=== PATIENT | male | born 1930 | race Caucasian/White ===

== ENCOUNTER 2017-01-05 22:30 | Emergency (ER) | payer MEDICARE, BC ==
[2017-01-05 23:21] LABS: #Eosinphils 0.2 thou/uL (0.0-0.7); #Lymphocytes 1.5 thou/uL (1.20-3.40); #Monocytes 0.8 thou/uL (0.11-0.59); #Neutrophils 5.5 thou/uL (1.40-6.50); %Basophils 0.5 % (0.0-1.0); %Lymphocytes 18.3 % (21.0-51.0); %Monocytes 9.4 % (0.0-10.0); Hematocrit 34.8 % (42.0-52.0); Red Blood Cell (RBC) Count 3.65 mill/uL (4.70-6.10); White Blood Cell (WBC) Count 7.9 thou/uL (4.8-10.8)
[2017-01-05] MEDS ORDERED: Bisacodyl 10 MG SUPP ONE (23:25)
[2017-01-05] MEDS ORDERED: Lidocaine Viscous Sol 2% 15 ml UD Cup ONE (23:26)
[2017-01-05 23:41] LABS: ALT (SGPT) 16 U/L (8-55); AST (SGOT) 21 U/L (5-34); Alkaline Phosphatase 97 U/L (40-150); Anion Gap 15 mmol/L (10-20); BUN (Urea Nitrogen) 26 mg/dL (8.4-25.7); Bilirubin, Total 0.4 mg/dL (0.2-1.2); Calc. Creatinine Clearance 0 mL/min (70-130); Calcium 9.6 mg/dL (7.8-10.44); Carbon Dioxide 24 mmol/L (23-31); Chloride 101 mmol/L (98-107); Estimated GFR-MDRD 44; Globulin 3.1 g/dL (2.4-3.5); Protein, Total 6.7 g/dL (5.8-8.1)
--- NOTE | 2017-01-05 23:43 | RAD ---
ABDOMEN ONE VIEW: History: Constipation. FINDINGS/IMPRESSION: Comparison is made with exam of 08-15-14. Changes of cholecystectomy and lower spinal surgery again seen. There are degenerative changes in th e spine. The bowel gas pattern is unremarkable. There is fecal material in the colon. POS: [facility]
[2017-01-05] MEDS ORDERED: Fleet Enema 133 ML BOT FS SCH (23:45)
[2017-01-05] MEDS ORDERED: Magnesium Citrate 300 ML BOT ONE (23:47)
== END 2017-01-06 02:00 | disposition home or self-care (01) ==
LOC: ERS 22:30
DX: K59.00 Constipation, unspecified (principal); E11.9 Type 2 diabetes mellitus without complications
CPT/HCPCS: 36415; 74000; 80053; 85025

== ENCOUNTER 2017-02-23 00:18 | Emergency (ER) | payer MEDICARE, BC | END 2017-02-23 02:01 | disposition home or self-care (01) | LOC: ERS 00:18 | DX: S80.211A Abrasion, right knee, initial encounter (principal); S80.811A Abrasion, right lower leg, initial encounter; E11.9 Type 2 diabetes mellitus without complications; M54.9 Dorsalgia, unspecified; F17.210 Nicotine dependence, cigarettes, uncomplicated; W18.11XA Fall from or off toilet without subsequent striking against object, initial encounter; Y92.012 Bathroom of single-family (private) house as the place of occurrence of the external cause | CPT/HCPCS: 36416; 93005; 99406 ==

== ENCOUNTER 2017-02-28 14:23 | Inpatient (IN) | payer MEDICARE, BC ==
[2017-02-28 14:58] LABS: #Lymphocytes 1.2 thou/uL (1.20-3.40); #Monocytes 1.1 thou/uL (0.11-0.59); %Basophils 0.1 % (0.0-1.0); %Lymphocytes 7.6 % (21.0-51.0); %Monocytes 6.5 % (0.0-10.0); Hematocrit 35.9 % (42.0-52.0); Mean Platelet Volume 9.5 fL (7.4-10.4); Red Blood Cell (RBC) Count 3.64 mill/uL (4.70-6.10); White Blood Cell (WBC) Count 16.4 thou/uL (4.8-10.8)
[2017-02-28 15:15] LABS: ALT (SGPT) 23 U/L (8-55); AST (SGOT) 30 U/L (5-34); Alkaline Phosphatase 101 U/L (40-150); Anion Gap 15 mmol/L (10-20); BUN (Urea Nitrogen) 23 mg/dL (8.4-25.7); Bilirubin, Total 0.7 mg/dL (0.2-1.2); CK (CPK) 161 U/L (30-200); Calc. Creatinine Clearance 0 mL/min (70-130); Carbon Dioxide 21 mmol/L (23-31); Chloride 102 mmol/L (98-107); Estimated GFR-MDRD 42; Globulin 2.8 g/dL (2.4-3.5); Protein, Total 6.4 g/dL (5.8-8.1)
[2017-02-28 15:23] LABS: Troponin I 1.819 ng/mL (< 0.028)
--- NOTE | 2017-02-28 15:49 | RAD ---
FRONTAL VIEW CHEST: Date: 02/28/17 INDICATION: Fever, productive cough, and weakness. FINDINGS: Improved degree of right pleural fluid from prior exam. There is mild bilateral pleural fluid remaini ng. Patchy multifocal parenchymal density of the right perihilar region and right lung base present. Cardiac silhouette is prominent. Removal of prior left PICC line. IMPRESSION: 1. Improved volume of right pleural fluid with residual mild right pleural fluid. Small volume left pleural fluid also present. 2. Multifocal parenchymal density of the mid to inferior right hemithorax which may be on the basis of atypical pneumonia. Follow-up to resolution recommended. POS: [facility]
[2017-02-28] MEDS ORDERED: Heparin 10,000 UNITS/ 10 ML VIAL SLOW IVP SCH (16:30)
[2017-02-28 16:34] LABS: Lactic Acid - Sepsis 1.7 mmol/L (0.5-2.2)
[2017-02-28 16:37] LABS: PTT 37.9 SEC (22.9-36.1); Prothrombin Time 15.7 SEC (12.0-14.7)
[2017-02-28] MEDS ORDERED: Heparin 5,000 UNITS/ML VIAL ONE (16:42)
[2017-02-28] MEDS ORDERED: Doxycycline 100 MG CAP PO SCH (16:45)
--- NOTE | 2017-02-28 17:08 | CON ---
DATE OF SERVICE: 02/28/2017 PRIMARY PAVING AND SURFACING LABOURER: Rasta Bronson M.D. REASON FOR CONSULTATION: Elevated troponins. HISTORY OF PRESENT ILLNESS: Mr. Olivera is a very pleasant 86-year-old white gentleman who comes to the hospital for cough. He states for the last 4 days he has been noticing a cough productive of gra y sputum. He felt he was developing pneumonia. He started to get short of breath as well, so he dec ided to come in for evaluation. He denies any chest pain, tightness or pressure. He states he has a little chest discomfort when he coughs, but otherwise nothing else. He was seen in the ER and was f ound to have an elevated white count and a right lower lobe pneumonia and on blood work he was found to have elevated troponins, so Cardiology has been consulted for this. He is a patient of Dr. Fariha guardado, sees him for atrial fibrillation. He was in the hospital back in July or June of this year for very high fevers, he had a temperature about 105. He was found to have an abscess on his liver and h e developed atrial fibrillation during this time. He has had a stress test back [place] [address] Pearl velazquez which showed inferior scar, but no reversible ischemia. His EF at that time was normal at 63% . PAST MEDICAL HISTORY: 1. Type 2 diabetes. 2. BPH. 3. Lymphoma about 10 years ago, treated with chemoradiation, in remission. 4. Memory loss. 5. Chronic back pain. 6. Peripheral vascular disease. PAST SURGICAL HISTORY: 1. Appendectomy. 2. Cholecystectomy. 3. Multiple back surgeries with chronic back pain. 4. Carotid endarterectomy. MEDICATIONS: Include, 1. Tylenol p.r.n. 2. Amiodarone 200 mg a day. 3. Aspirin 325 mg a day. 4. Diltiazem 240 mg a day. 5. Finasteride. 6. Metformin. 7. Omeprazole. 8. Terazosin. 9. Tylenol with codeine. ALLERGIES: PENICILLIN. FAMILY HISTORY: Noncontributory at this age. SOCIAL HISTORY: No alcohol, tobacco or drugs. REVIEW OF SYSTEMS: A 12-point review of systems was done and is all negative unless stated in the hi story of present illness. PHYSICAL EXAMINATION: VITAL SIGNS: Temperature 100.5, pulse 72, respiration rate 22, satting 88% on room air. GENERAL: Awake, alert, oriented x3, in no distress. HEENT: Normocephalic, atraumatic. NECK: Supple. LUNGS: Have crackles at the right base. CARDIOVASCULAR: S1, S2, no S3 or S4. A very soft grade 2/6 systolic murmur in the right upper youngblood al border. ABDOMEN: Soft, positive bowel sounds. EXTREMITIES: No edema. SKIN: Warm and dry. LABORATORY WORK: Reviewed. CBC with a white count of 16, mostly neutrophils 85%, hemoglobin 11.8, h ematocrit 35, platelet count 138. Coags were reviewed. Chemistry was reviewed. Creatinine 1.56, wh ich is higher than his baseline, but similar to what it was back in December in September. Troponin was 1. 8 initially, CK-MB of 4.3, albumin of 3.6. Lactic acid was 1.7. EKG showed sinus rhythm with nonspecific ST changes. Chest x-ray shows right lower lobe pneumonia. ASSESSMENT AND PLAN: 1. Non-ST elevation myocardial infarction: Demand ischemia, most likely from his infectious process . We will get an echocardiogram and agree with full anticoagulation for now until further informatio n comes in. 2. We will get an echocardiogram. 3. Continue to trend troponins. 4. Antibiotics per primary team. Thank you for letting us to participate in the care of your patient. We will follow.
[2017-02-28] MEDS ORDERED: Heparin 25,000 units/D5W 500 ML ONE (17:23)
[2017-02-28] MEDS: Heparin 25,000 units/D5W 500 ML IV SCH (17:31)
[2017-02-28] MEDS ORDERED: Mag-Al 1200 mg/1200 mg/30 ML UDCUP PO PRN (17:51)
[2017-02-28] MEDS ORDERED: Ondansetron HCl/PF 4 MG/2 ML Vial IVP PRN (17:51)
[2017-02-28] MEDS ORDERED: Calcium Carbonate 500 MG ChewTAB PO PRN (17:51)
[2017-02-28] MEDS ORDERED: Bisacodyl 5 MG TAB PO PRN (17:51)
[2017-02-28] MEDS ORDERED: Senokot 8.6 MG TAB PO PRN (17:51)
[2017-02-28] MEDS ORDERED: Albuterol Sulfate 1.25 MG/3 ML NEB NEB PRN (17:53)
[2017-02-28 18:22] LABS: Troponin I 3.476 ng/mL (< 0.028)
[2017-02-28] MEDS: Azithromycin 500 MG in Sodium Chloride 0.9% 250 ML 250 ML IVPB SCH (19:42)
--- NOTE | 2017-02-28 20:18 | HP ---
CHIEF COMPLAINT: Shortness of breath. HISTORY OF PRESENT ILLNESS: This is an 86-year-old gentleman with past medical history significant f or type 2 diabetes as well as peripheral vascular disease, and BPH, who presents to the hospital julieth use of shortness of breath that occurred over the past few days that has been associated with cough. The patient states that his cough has started approximately 4 days ago and has been progressively ge tting worse and has gotten progressively worse and this has been associated with some shortness of br eath. He states that the cough has been magana colored sputum in nature. Because of the cough was not getting any better, he decided to come to the hospital for further evaluation and management. He st ates that along with these, he has not been having any chest pain, chills or sweats. Also, he is not recording any fevers at home. While the patient was in the ER, he was found to have a temperature o f 100.1 with a troponin of 1.819. Cardiology was consulted at that time. He currently states that mookie arauz is doing well. He denies any current complaints now including shortness of breath as well as chest pain. He does state that he does feel a little better, but is still complaining of cough at this ti me. Because of the findings that were found with labs, Cardiology was consulted. He currently denie s any other complaints at this time. He states that currently he is just very hungry. PAST MEDICAL HISTORY: See HPI. PAST SURGICAL HISTORY: Includes appendectomy as well as cholecystectomy, multiple back surgeries as well as carotid endarterectomy. FAMILY HISTORY: Significant for cardiovascular disease as well as diabetes. HOME MEDICATIONS: Include Tylenol, amiodarone, aspirin, diltiazem, finasteride, metformin, terazosin , omeprazole as well as Tylenol with codeine. SOCIAL HISTORY: The patient denies any tobacco, recreational drug use or alcoholic use. REVIEW OF SYSTEMS: A 14-point review of systems was reviewed and was negative. PHYSICAL EXAMINATION: VITAL SIGNS: Blood pressure was 129/50, pulse was 81, temperature was as stated 100.1, no it is curr ently 98.4. Patient was satting 95% oxygen on 2 liters nasal cannula. He was 91% on room air. GENERAL: Patient was in no apparent distress, resting comfortably in the bed. Alert, awake, oriente d x3. HEENT: Head: Normocephalic, atraumatic. Eyes: Pupils round and reactive to light. Extraocular mu scles were intact. Conjunctivae were pink. Sclerae were nonicteric. Mouth: Oral mucosa is pink an d moist. No erythema was noted. NECK: Soft, supple, no JVD, no carotid bruits, no lymphadenopathy. CARDIOVASCULAR: Regular rate and rhythm. S1, S2 sounds are heard. No S3, no S4. RESPIRATORY: Clear to auscultation bilaterally. No added sounds. ABDOMEN: Bowel sounds, soft, nontender, nondistended. EXTREMITIES: Pulses were 2+ both dorsalis and radial pulse. No pitting edema could be appreciated. NEUROLOGIC: Cranial nerves II through XII are grossly intact. The patient is moving all 4 extremiti es very well. Motor was intact. No focal deficits could be appreciated. LABORATORY DATABASE: White blood cell count 16.4, hemoglobin 11.9, hematocrit 35.9, platelet count w as 138. Sodium was 133, potassium 4.6, chloride is 102, bicarbonate was 21, creatinine was 1.56, glu cose is 121, lactic acid was 1.7. As stated, troponin was 1.8. BNP was 606. IMAGING: Chest x-ray showed multifocal parenchymal density of the mid to inferior right hemothorax w hich may be on the basis of atypical pneumonia. EKG did not show any acute abnormalities including ST elevation. ASSESSMENT: 1. Non-ST elevated myocardial infarction, likely demand ischemia in nature with infectious process c urrently, most likely pneumonia at this time: 2. Sepsis, likely secondary to community-acquired pneumonia. 3. Type 2 diabetes. 4. Benign prostatic hypertrophy. 5. Acute kidney injury, likely prerenal in nature with acute dehydration component as the patient do es look slightly dehydrated at this time. 6. Peripheral vascular disease. PLAN: Currently the patient is hemodynamically stable at this time and without any significant sympt oms. Patient was placed on heparin drip. Cardiology has been consulted. We will trend the troponin s with 2 more sets of troponins and monitor accordingly. We will place the patient on telemetry. We will also place the patient on antibiotics with IV Rocephin as well as azithromycin for most likely community-acquired pneumonia. Blood cultures have already been drawn, so we will follow with these r ecommendations accordingly. We will resume home medications, put him on sliding scale insulin protoc ol and we will resume home medication at the medicine reconciliation as well. DVT prophylaxis, the p atient will be on heparin drip due to the NSTEMI. The patient does not need any other anticoagulatio n at this time. We will also monitor creatinine in a.m. due to the slight bump in his creatinine and address accordingly.
[2017-02-28 21:20] LABS: Troponin I 3.854 ng/mL (< 0.028)
[2017-02-28] MEDS ORDERED: Melatonin 3 MG TAB PO PRN (23:08)
[2017-02-28] MEDS ORDERED: Diabetic Tussin 200 MG/10 ML UDCUP PO PRN (23:08)
[2017-02-28 23:11] VITALS: BMI 29.7
[2017-03-01 00:11] LABS: PTT 193.4 SEC (22.9-36.1)
[2017-03-01 03:25] LABS: #Eosinphils 0.1 thou/uL (0.0-0.7); #Lymphocytes 2.7 thou/uL (1.20-3.40); #Monocytes 0.7 thou/uL (0.11-0.59); #Neutrophils 8.9 thou/uL (1.40-6.50); %Basophils 0.2 % (0.0-1.0); %Eosinophils 0.4 % (0.0-10.0); %Lymphocytes 21.7 % (21.0-51.0); %Monocytes 5.4 % (0.0-10.0); Mean Platelet Volume 9.3 fL (7.4-10.4); Red Blood Cell (RBC) Count 2.99 mill/uL (4.70-6.10); White Blood Cell (WBC) Count 12.3 thou/uL (4.8-10.8)
[2017-03-01 03:30] LABS: Anion Gap 10 mmol/L (10-20); BUN (Urea Nitrogen) 21 mg/dL (8.4-25.7); Calc. Creatinine Clearance 46 mL/min (70-130); Calcium 8.2 mg/dL (7.8-10.44); Carbon Dioxide 23 mmol/L (23-31); Chloride 102 mmol/L (98-107); Estimated GFR-MDRD 52
[2017-03-01] MEDS ORDERED: MELATONIN 2.5 MG PO PRN ×2 (11:02→11:15)
[2017-03-01] MEDS ORDERED: Non-Formulary Item 1 EACH (Omeprazole [Omeprazole] 20 MG) PO PRN (11:02)
[2017-03-01] MEDS ORDERED: Non-Formulary Item 1 EACH (Mirabegron [Myrbetriq] 50 MG) PO SCH (11:03)
[2017-03-01] MEDS ORDERED: Amiodarone 200 MG TAB PO SCH ×2 (11:05→11:15)
--- NOTE | 2017-03-01 11:08 | PDOC.PN ---
- Subjective Encounter Start Date: 03/01/17 Encounter Start Time: 10:30 states cough is getting better denies sob or chest pain c/o of dry eyes - Objective Resuscitation Status: Resuscitation Status FULL:Full Resuscitation Vital Signs & Weight: Vital Signs (12 hours) Temp Pulse Resp BP Pulse Ox 03/01/17 10:18 73 16 131/57 L 95 03/01/17 08:00 98.7 F 74 22 H 121/47 L 97 03/01/17 04:00 98.3 F 71 18 127/62 96 03/01/17 00:16 97.9 F 76 18 132/52 L 97 Weight Weight 184 lb 1.6 oz I&O: 02/28/17 03/01/17 03/02/17 06:59 06:59 06:59 Intake Total 767 240 Output Total 100 Balance 667 240 Result Diagrams: 03/01/17 02:45 03/01/17 02:45 Additional Labs: Accuchecks 03/01/17 02/28/17 05:43 20:49 POC Glucose 122 H 178 H Phys Exam - Physical Examination Constitutional: NAD HEENT: PERRLA, moist MMs, sclera anicteric Neck: no nodes, no JVD, supple Respiratory: no wheezing, clear to auscultation bilateral Cardiovascular: RRR, no rub systolic murmurs over aortic Gastrointestinal: soft, non-tender, no distention, positive bowel sounds Musculoskeletal: pulses present Neurological: non-focal, moves all 4 limbs Psychiatric: normal affect, A&O x 3 Skin: normal turgor, cap refill <2 seconds Dx/Plan (1) Pneumonia Code(s): J18.9 - PNEUMONIA, UNSPECIFIED ORGANISM Status: Acute (2) NSTEMI (non-ST elevated myocardial infarction) Code(s): I21.4 - NON-ST ELEVATION (NSTEMI) MYOCARDIAL INFARCTION Status: Acute (3) Sepsis Code(s): A41.9 - SEPSIS, UNSPECIFIED ORGANISM Status: Acute (4) MARTHA (acute kidney injury) Code(s): N17.9 - ACUTE KIDNEY FAILURE, UNSPECIFIED Status: Acute - Plan cont current plan of care, plan discussed w/ family, continue antibiotics * . on heparin gtt troponins trended upwards. unclear or primarily cardiac vs demand ischemia follow recs from cardiology resume home meds lubricant drops prn
--- NOTE | 2017-03-01 12:45 | PDOC.CTH ---
Cardiology Progress Note - Subjective he continues to have cough but feels better with the abx. He has pain on his bottom rib cage with cough only. - Objective Vital Signs Temp Pulse Resp BP BP Pulse Ox 03/01/17 11:31 98.3 F 75 20 96 03/01/17 11:22 76 135/64 03/01/17 10:18 73 16 131/57 L 95 03/01/17 08:00 98.7 F 74 22 H 121/47 L 97 03/01/17 04:00 98.3 F 71 18 127/62 96 Weight 184 lb 1.6 oz 02/28/17 03/01/17 03/02/17 06:59 06:59 06:59 Intake Total 767 240 Output Total 100 Balance 667 240 - Physical Examination General/Neuro: alert & oriented x3, NAD Neck: no JVD present Lungs: unlabored respirations Heart: RRR Abdomen: NT/ND Extremities: other: (no edema) - Telemetry Telemetry Rhythm: NSR - Labs Result Diagrams: 03/01/17 02:45 03/01/17 02:45 Troponin/CKMB CK-MB (CK-2) 4.3 ng/mL (0-6.6) 02/28/17 14:38 Troponin I 3.854 ng/mL (< 0.028) H* 02/28/17 20:42 - Assessment/Plan 1. NSTEMI, demand ischemia most likely 2. RLL pneumonia 3. 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 4. Acute systolic heart failure. 5. EFat 45-50% on echo today. PLAN: - One dose IV lasix then only PRN. - Continue IV abx per primary team. - May need further risk stratification later this admission or as outpatient. - Complete 48 hrs of heparin drip.
[2017-03-01] MEDS ORDERED: Furosemide 40 MG/4 ML VIAL SLOW IVP SCH (15:00)
[2017-03-01] MEDS: Artificial Tear Sol 15 ML BOT EA EYE PRN (15:11)
[2017-03-01] MEDS: Azithromycin 500 MG in Sodium Chloride 0.9% 250 ML 250 ML IVPB SCH (18:06)
[2017-03-01] MEDS: Finasteride 5 MG TAB PO SCH (20:58)
[2017-03-01] MEDS: Donepezil HCl 10 MG TAB PO SCH (20:59)
[2017-03-01] MEDS ORDERED: Non-Formulary Item 1 EACH (Terazosin Hcl [Hytrin] 10 MG) PO SCH (21:00)
[2017-03-01] MEDS: Terazosin HCl 5 MG CAP PO SCH (21:00)
[2017-03-01] MEDS: TROSPIUM 20 MG TABLET PO SCH (21:01)
--- NOTE | 2017-03-01 21:51 | CON ---
DATE OF CONSULTATION: 03/01/2017 SERVICE: Pulmonary Medicine. REASON FOR CONSULTATION: Respiratory failure, community-acquired pneumonia. HISTORY OF PRESENT ILLNESS: Patient is an 86-year-old white male with past medical history significant for increasing weakness. He also has type 2 diabetes mellitus and back pain. He spends most of his time in a wheelchair. He is having increasing difficulty with his strength. In this state, roughly 3 days prior to admission, he started having increasing cough, congestion, and sputum production. He had so much weakness that he had difficulty getting out of bed and fell on to the ground. His called the children. They came and picked him up and brought him to the emergency department. He had a fever, elevated troponin, and had pretty severe weakness. He was tucked into the [facility] , initiated on appropriate antibiotic coverage for community-acquired pneumonia. Overnight, he got significantly better. He is having less cough, but bringing up twice his much sputum which has a green character to it. He is feeling much improved and the strength is starting to come around. PAST MEDICAL HISTORY: 1. Type 2 diabetes mellitus. 2. Peripheral vascular disease. 3. BPH. 4. Chronic back discomfort. 5. Coronary artery disease. PAST SURGICAL HISTORY: 1. Cholecystectomy. 2. Appendectomy. 3. Back surgeries, multiple. 4. Carotid endarterectomy. FAMILY HISTORY: Noncontributory. SOCIAL HISTORY: Negative for current alcohol, tobacco, or illicit drug use. He denies any exposure to chemicals, dust, asbestos, or tuberculosis. ALLERGIES: PENICILLIN. MEDICATIONS: List of his inpatient medications was reviewed. No updates were made at this time. REVIEW OF SYSTEMS: General, head, ears, eyes, nose, throat, cardiovascular, respiratory, GI, , musculoskeletal, neurologic, and skin is negative except as mentioned in the HPI. PHYSICAL EXAMINATION: VITAL SIGNS: Afebrile, pulse 66, blood pressure 130/51, respirations 20, saturation 95% on room air. HEENT: Normocephalic, atraumatic. Sclerae are white, conjunctivae pink. Oral and nasal mucosa is moist without lesions. LUNGS: Decent air entry. Rhonchi are present on the right. It clears with cough. No prolonged expiratory phase or wheezing is appreciated. HEART: Normal rate, regular. ABDOMEN: Soft, nontender, nondistended, bowel sounds positive. MUSCULOSKELETAL: No cyanosis or clubbing. There is no pitting in the bilateral lower extremities. NEUROLOGIC: Grossly nonfocal. LABORATORY DATA: WBC 12.3, hemoglobin 9.4. Platelets 112,000. INR 1.2. Creatinine is down trending to 1.31. Basic metabolic profile is otherwise unremarkable. Troponin is stabilizing at 3.8. Influenza A and B is unremarkable. Blood cultures x2 are unremarkable. ASSESSMENT: 1. Severe sepsis. 2. Community-acquired pneumonia. 3. 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 4. Acute kidney injury, resolving. 5. Non-ST elevation myocardial infarction. PLAN: We will continue antibiotics. Tomorrow, if he continues to make improvements, we can switch over to p.o. medications. If his blood cultures remain negative after 48 hours, he can be discharged to a nursing home facility. His daughter runs the place that he would like to go. Case management consultation will be placed. Supportive care including nebulized medications will otherwise be continued. TEODORA
[2017-03-02] MEDS: Heparin 25,000 units/D5W 500 ML IV SCH (05:39)
--- NOTE | 2017-03-02 09:42 | PDOC.PN ---
- Subjective Encounter Start Date: 03/02/17 Encounter Start Time: 09:32 Subjective: no fever, chills. sill has cough - Objective Resuscitation Status: Resuscitation Status FULL:Full Resuscitation MAR Reviewed: Yes Vital Signs & Weight: Vital Signs (12 hours) Temp Pulse Resp BP Pulse Ox 03/02/17 07:27 98.4 F 72 20 96 03/02/17 07:15 98.4 F 72 20 140/54 L 96 03/02/17 04:00 98.6 F 71 20 142/55 H 93 L 03/02/17 00:00 97.7 F 65 16 132/54 L 95 Weight Weight 182 lb 6.4 oz I&O: 03/01/17 03/02/17 03/03/17 06:59 06:59 06:59 Intake Total 767 1737 Output Total 100 1425 Balance 667 312 Result Diagrams: 03/01/17 02:45 03/01/17 02:45 Phys Exam - Physical Examination Constitutional: NAD Neck: no JVD Respiratory: clear to auscultation bilateral except a few scatterd, faint ralesw Cardiovascular: RRR 3/6 holosys murmur Gastrointestinal: soft, non-tender, positive bowel sounds Musculoskeletal: no edema Dx/Plan (1) MARTHA (acute kidney injury) Code(s): N17.9 - ACUTE KIDNEY FAILURE, UNSPECIFIED Status: Acute (2) Pneumonia Code(s): J18.9 - PNEUMONIA, UNSPECIFIED ORGANISM Status: Acute Qualifiers: Pneumonia type: due to unspecified organism Laterality: bilateral (3) Atrial fibrillation with RVR Code(s): I48.91 - UNSPECIFIED ATRIAL FIBRILLATION Status: Chronic Comment: on Amiodarone/Cardizem (4) Anemia, macrocytic Code(s): D53.9 - NUTRITIONAL ANEMIA, UNSPECIFIED Status: Chronic (5) BPH (benign prostatic hyperplasia) Code(s): N40.0 - BENIGN PROSTATIC HYPERPLASIA WITHOUT LOWER URINRY TRACT SYMP Status: Chronic Qualifiers: Lower urinary tract symptom presence: symptoms absent Qualified Code(s): N40.0 - Benign prostatic hyperplasia without lower urinary tract symptoms (6) Diabetes type 2, controlled Code(s): E11.9 - TYPE 2 DIABETES MELLITUS WITHOUT COMPLICATIONS Status: Chronic - Plan cultures neg, cont antibx iv 24 more hrs -: cont accu/ ss, sellected home meds * .
[2017-03-02] MEDS: TROSPIUM 20 MG TABLET PO SCH ×2 (09:45→20:38)
[2017-03-02] MEDS: Amiodarone 200 MG TAB PO SCH (09:45)
--- NOTE | 2017-03-02 13:15 | PRG ---
DATE OF SERVICE: 03/02/2017 Mr. Olivera is doing well. No chest pain or pressure noted. He recently was admitted for pneumonia. His troponin was also elevated. PHYSICAL EXAMINATION: VITAL SIGNS: Blood pressure 145/65, pulse 72, temperature 97.5. LUNGS: Clear to auscultation. CARDIAC: Regular rate and rhythm. ABDOMEN: Soft, nontender, nondistended. EXTREMITIES: No edema. Echo with Doppler shows LVEF 45-50%. IMPRESSION: 1. elevated troponin, likely due to demand ischemia. 2. Pneumonia. RECOMMENDATIONS: Mr. Olivera has had a stress study performed in 2014 with scar in the inferior wal l. He is hemodynamically stable with no current symptoms. At this point, we will continue conservat henok therapy. He is currently on amiodarone therapy, aspirin, in addition to Cardizem. Continue anti biotic therapy as prescribed.
[2017-03-02] MEDS: Azithromycin 500 MG in Sodium Chloride 0.9% 250 ML 250 ML IVPB SCH (17:58)
[2017-03-02] MEDS: Donepezil HCl 10 MG TAB PO SCH (20:38)
[2017-03-02] MEDS: Finasteride 5 MG TAB PO SCH (20:38)
[2017-03-02] MEDS: Terazosin HCl 5 MG CAP PO SCH (20:38)
--- NOTE | 2017-03-02 22:13 | PRG ---
DATE OF SERVICE: 03/02/2017 SERVICE: Pulmonary Medicine. INTERVAL HISTORY: The patient is doing really well from a respiratory standpoint. His breathing is much improved. He continues to cough. He is bringing up a little bit of green sputum. That being sa id, he feels much improved. His strength is coming back to him. He is yet to get out of bed, kim cortez PHYSICAL EXAMINATION: VITAL SIGNS: Afebrile currently. Pulse 73, blood pressure 145/65, respirations 16, saturation 96% o n room air. GENERAL: The patient is awake and alert, in no apparent distress. LUNGS: Decent air entry. Rhonchi are present on the right. HEART: Normal rate, regular. ABDOMEN: Soft, nontender, nondistended, bowel sounds are positive. MUSCULOSKELETAL: No cyanosis or clubbing. No pitting in the bilateral lower extremities. NEUROLOGIC: Grossly nonfocal. LABORATORY DATA: WBC 12.3 and down trending, hemoglobin 9.4, platelets 112,000. Neutrophil count hdez s returned to normal. Creatinine 1.31 and also down trending. Influenza A and B is negative. Blood cultures negative to date. ASSESSMENT: 1. Severe sepsis, improving. 2. Community-acquired pneumonia. 3. 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 4. Acute kidney injury, resolved. 5. Non-ST elevation myocardial infarction. PLAN: The patient is stable for transition out of the [facility] to the regular floor Pulmonary Critical Care will continue to follow up for the time being. Ultimately on discharge from the hospital, he wi ll require repeat chest x-ray to verify his infiltrate has resolved. We will work on mobilizing him today and get him out of bed and into a chair as well as have him work with physical therapy. Repeat laboratories in the morning.
[2017-03-03] MEDS: Artificial Tear Sol 15 ML BOT EA EYE PRN (00:27)
[2017-03-03] MEDS: Acetaminophen 325 MG TAB PO PRN ×2 (00:27→10:26)
[2017-03-03 04:49] LABS: #Eosinphils 0.1 thou/uL (0.0-0.7); #Lymphocytes 2.1 thou/uL (1.20-3.40); #Monocytes 0.6 thou/uL (0.11-0.59); #Neutrophils 4.7 thou/uL (1.40-6.50); %Basophils 0.2 % (0.0-1.0); %Eosinophils 1.4 % (0.0-10.0); %Lymphocytes 27.6 % (21.0-51.0); Hematocrit 30.1 % (42.0-52.0); Mean Platelet Volume 9.4 fL (7.4-10.4); Red Blood Cell (RBC) Count 3.05 mill/uL (4.70-6.10); White Blood Cell (WBC) Count 7.5 thou/uL (4.8-10.8)
[2017-03-03 05:05] LABS: Anion Gap 11 mmol/L (10-20); BUN (Urea Nitrogen) 18 mg/dL (8.4-25.7); Calc. Creatinine Clearance 51 mL/min (70-130); Calcium 8.4 mg/dL (7.8-10.44); Carbon Dioxide 26 mmol/L (23-31); Chloride 101 mmol/L (98-107); Estimated GFR-MDRD 58; Magnesium 1.6 mg/dL (1.6-2.6); Phosphorus 3.4 mg/dL (2.3-4.7)
--- NOTE | 2017-03-03 08:55 | PDOC.PN ---
- Subjective Encounter Start Date: 03/03/17 Encounter Start Time: 08:50 Subjective: doing well , wants to go home - Objective Resuscitation Status: Resuscitation Status FULL:Full Resuscitation MAR Reviewed: Yes Vital Signs & Weight: Vital Signs (12 hours) Temp Pulse Resp BP Pulse Ox 03/03/17 07:20 98.1 F 72 16 153/70 H 98 03/03/17 03:12 97.9 F 73 20 160/72 H 95 03/02/17 23:56 98.5 F 71 18 143/64 H 95 Weight Weight 169 lb 8 oz I&O: 03/02/17 03/03/17 03/04/17 06:59 06:59 06:59 Intake Total 1737 977.8 Output Total 1425 Balance 312 977.8 Result Diagrams: 03/03/17 04:00 03/03/17 04:00 Additional Labs: Accuchecks 03/02/17 03/02/17 20:36 16:49 POC Glucose 122 H 160 H Phys Exam - Physical Examination Constitutional: NAD Neck: no JVD Respiratory: clear to auscultation bilateral Cardiovascular: RRR, no significant murmur Gastrointestinal: soft, positive bowel sounds Musculoskeletal: no edema Dx/Plan (1) MARTHA (acute kidney injury) Code(s): N17.9 - ACUTE KIDNEY FAILURE, UNSPECIFIED Status: Resolved (2) Pneumonia Code(s): J18.9 - PNEUMONIA, UNSPECIFIED ORGANISM Status: Acute Qualifiers: Pneumonia type: due to unspecified organism Laterality: bilateral (3) Atrial fibrillation with RVR Code(s): I48.91 - UNSPECIFIED ATRIAL FIBRILLATION Status: Chronic Comment: on Amiodarone/Cardizem (4) Anemia, macrocytic Code(s): D53.9 - NUTRITIONAL ANEMIA, UNSPECIFIED Status: Chronic (5) BPH (benign prostatic hyperplasia) Code(s): N40.0 - BENIGN PROSTATIC HYPERPLASIA WITHOUT LOWER URINRY TRACT SYMP Status: Chronic Qualifiers: Lower urinary tract symptom presence: symptoms absent Qualified Code(s): N40.0 - Benign prostatic hyperplasia without lower urinary tract symptoms (6) Diabetes type 2, controlled Code(s): E11.9 - TYPE 2 DIABETES MELLITUS WITHOUT COMPLICATIONS Status: Chronic - Plan cont antibx po, cont amiodarone, lisinopril, terrazosyn -: DC planning * .
[2017-03-03] MEDS ORDERED: Lisinopril 10 MG TAB PO SCH (09:00)
[2017-03-03] MEDS: Amiodarone 200 MG TAB PO SCH (10:10)
[2017-03-03] MEDS: TROSPIUM 20 MG TABLET PO SCH (10:13)
--- NOTE | 2017-03-03 12:42 | PQF ---
CLINICAL DOCUMENTATION IMPROVEMENT CLARIFICATION FORM: ICD-10 Updated PLEASE DO AN ADDENDUM TO THE PROGRESS NOTE WITH ANY DOCUMENTATION UPDATES OR ADDITIONS AND CARRY THROUGH TO DC SUMMARY. THANK YOU. DATE: 03/03/17 ATTN: Dr. Barry Please exercise your independent, professional judgment in responding to the clarification form. Clinical indicators are provided on the bottom of this form for your review Please check appropriate box(s) to clarify if the following diagnosis has been ruled in our ruled out: SEPSIS . [ x] Ruled in diagnosis [ x] Continue to treat [ ] Resolved [ ] Ruled out diagnosis [ ] Cannot rule out diagnosis [ ] Other diagnosis [ ] Unable to determine For continuity of documentation, please document condition throughout progress notes and discharge summary. Thank You. CLINICAL INDICATORS - SIGNS / SYMPTOMS / LABS H&P: WBC 16.4 SEPSIS, LIKELY SECONDARY TO COMMUNITY-ACQUIRED PNEUMONIA PN 03/01: SEPSIS, UNSPECIFIED ORGANISM. PULMONOLOGY PN 03/02/17: SEVERE SEPSIS, IMPROVING. RISKS: H&P: HX OF TYPE 2 DM; PVD. NON-STEMI LIKELY DEMAND ISCHEMIA IN NATURE W/ INFECTIOUS PROCESS. SEPSIS, LIKELY SECONDARY TO COMMUNITY-ACQUIRED PNEUMONIA. MARTHA. TREATMENTS: CPOE 02/28: ZITHROMAX 500MG IV. DC'D 03/03/17 CPOE 02/28: LEVAQUIN 750 MG IV Q 2D. DC'D 03/03/17 CPOE 03/03: LEVAQUIN 500MG PO 0600 Thank you, Denise (This form is maintained as a part of the permanent medical record) 2015 [employer], [employer]. All Rights Reserved Denise Gil RN, BSN [email or web address] Office: [phone] [facility]
--- NOTE | 2017-03-03 15:05 | DIS ---
DATE OF ADMISSION: 02/28/2017 DATE OF DISCHARGE: 03/03/2017 PRIMARY CARE PROVIDER: Shawna Orourke M.D. DISCHARGE DISPOSITION: Discharged to snf facility. FINAL DIAGNOSES: Sepsis, pneumonia, presumed Streptococcal pneumonia, non-ST elevation myocardial in farction, acute kidney failure, Alzheimers' dementia, history of atrial fibrillation, benign prostati c hypertrophy, diabetes mellitus type 2. DISCHARGE MEDICATIONS: Levaquin 500 mg p.o. daily x10 more days, melatonin 2.5 mg at bedtime, metfor min 500 mg a day, trospium chloride 20 mg b.i.d., Hytrin 10 mg at bedtime, omeprazole 20 mg a day, My rbetriq 50 mg a day, Proscar 5 mg a day, donepezil 10 mg a day, aspirin 81 mg a day, Tylenol #3 every 6 hours p.r.n., Zestril 10 mg a day, Cardizem 240 mg a day, calcium carbonate 1000 mg q.4 hours p.r. n., amiodarone 400 mg a day, and albuterol 1.25 mg q.8 hours p.r.n. ALLERGIES: PENICILLINS. PENDING AT THE TIME OF DISCHARGE: Blood cultures are negative at 48 hours. CODE STATUS: FULL. [facility]: [facility] The patient's initial complaint was shortness of breath. He was seen and evalu ated. Chest x-ray showed multifocal parenchymal densities in the mid inferior right hemothorax. EKG showed no ST segment changes. White cell count was elevated at 16.4, hemoglobin 11.9, creatinine wa s elevated at 1.56. Lactate 1.7. His troponin was 1.8. He was started on IV antibiotics and IV hep francisco. His white count during his hospital stay came down from 16.4 to 12.3 to 7.5. His creatinine c sofi down to 1.18 and BUN down to 18. Cardiac enzymes, troponin 1.8, 3.5, 3.9. He was seen in [facility] tation by Dr. Matt Montano, Cardiology. Heparin was continued. Echocardiogram was ordered. The patient improved steadily during his hospital stay. Echocardiogram revealed an EF of 45%-50%. He wa s seen in consultation by Dr. Ramón Rivas, Pulmonology. Cardiology follow up on 03/02/2017, recom mended continuing amiodarone, aspirin, Cardizem, and antibiotics. Anticoagulation has been discontin ued. PROCEDURES: None. CONDITION AT THE TIME OF DISCHARGE: Alert, confused and cooperative. Chest is clear bilaterally. H eart has regular rate and rhythm with no murmurs. He is being discharged to snf facility . Follow up with primary care provider. He will need a chest x-ray in 2-3 weeks. Thirty-five minutes spent preparing this discharge.
[2017-03-03 16:39] VITALS: TEMP 98.7
--- NOTE | 2017-03-03 18:17 | PRG ---
DATE OF SERVICE: 03/03/2017 SERVICE: Pulmonary Medicine. INTERVAL HISTORY: The patient is doing really quite well from a respiratory standpoint. He is breat jolly comfortably. He has no specific complaints of fevers, chills, nausea, vomiting, or diarrhea. O therwise, he has returned to his usual state of health. I am seeing him just before he is being disc harged from the hospital. He has no specific complaints this morning. He is committed to improving strength. PHYSICAL EXAMINATION: VITAL SIGNS: Afebrile, pulse 71, blood pressure 156/66, respirations 16, saturation 97% on room air. GENERAL: The patient is awake and alert, no apparent distress. LUNGS: Excellent air entry. There is no prolonged expiratory phase or wheezing. HEART: Normal rate, regular. ABDOMEN: Soft, nontender, nondistended. Bowel sounds positive. MUSCULOSKELETAL: No cyanosis or clubbing. No pitting in the bilateral lower extremities. NEUROLOGIC: Grossly nonfocal. LABORATORY DATA: WBC 7.5, hemoglobin 9.7, platelets 123,000. Basic metabolic profile, magnesium and phosphorus were all within normal limits. Blood cultures x2 and influenza are unremarkable. ASSESSMENT: 1. Severe sepsis, improving. 2. Community-acquired pneumonia. 3. 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 4. Acute kidney injury, resolved. 5. Non-ST elevation myocardial infarction. PLAN: The patient remains clinically stable. He will require 7 days of antibiotics. He will requir e repeat chest x-ray in 4-6 weeks in the outpatient setting to verify that the infiltrate has resolve d. If he remains in house, I will continue to follow, but from my perspective, he is stable for helm sition out.
--- NOTE | 2017-03-04 15:12 | PRG ---
DATE OF SERVICE: 03/03/2017 SUBJECTIVE: Jarod is doing well. No chest pain or pressure noted. He is much better today. OBJECTIVE: VITAL SIGNS: Blood pressure 156/66, pulse 71, temperature 98.7. LUNGS: Clear to auscultation. HEART: Regular rate and rhythm. ABDOMEN: Soft, nontender, and nondistended. EXTREMITIES: No edema. IMPRESSION: 1. Elevated troponin. 2. . 3. Coronary artery disease. RECOMMENDATIONS: The patient is doing well from my standpoint. We decreased amiodarone therapy to 2 00 mg q.a.m. Plan is to follow up Mr. Olivera as an outpatient for risk stratification.
[2017-03-05 17:00] VITALS: BP 153/70
== END 2017-03-03 17:06 | DRG 871 ==
LOC: ERS 14:23 → ERHOLD 16:47 → IMCU/EMU 20:26 → 2SE 03-02 12:16
PROVIDERS: ADMIT Internal Medicine; ATTEND Internal Medicine
DX: A41.9 Sepsis, unspecified organism (principal); J15.4 Pneumonia due to other streptococci; I21.A1 Myocardial infarction type 2; N17.9 Acute kidney failure, unspecified; I48.91 Unspecified atrial fibrillation; G30.9 Alzheimer's disease, unspecified; I50.42 Chronic combined systolic (congestive) and diastolic (congestive) heart failure; E11.9 Type 2 diabetes mellitus without complications; F02.80 Dementia in other diseases classified elsewhere, unspecified severity, without behavioral disturbance, psychotic disturbance, mood disturbance, and anxiety; E86.0 Dehydration; N40.0 Benign prostatic hyperplasia without lower urinary tract symptoms; I25.10 Atherosclerotic heart disease of native coronary artery without angina pectoris; R65.20 Severe sepsis without septic shock
CPT/HCPCS: 36415; 36416; 71010; 80048; 80053; 82553; 83605; 83735; 83880; 84100; 84484; 85025; 85610; 85730; 87040; 93005; 93306; 93798; 94760; 96361; 96365; 96366; 96367; 96375; A4216; G8978-GP-CM; G8979-GP-CL; J0456; J1644; J1956; J7050

== ENCOUNTER 2017-05-09 14:51 | Inpatient (IN) | payer MEDICARE, BC ==
--- NOTE | 2017-05-09 15:50 | RAD ---
CHEST 1 VIEW: HISTORY: Cough. COMPARISON: 02/28/17. FINDINGS: Cardiac silhouette is magnified by projection. Pulmonary vasculature is slightly engorged. Patchy b ilateral perihilar and bibasilar infiltrates are less pronounced than on the prior study. Linear ate lectasis projects at the right upper lobe. Mediastinum is midline with aortic calcification. There is no evidence of pneumothorax. Degenerative changes involving the right shoulder. IMPRESSION: 1. Pulmonary vascular congestion. Patchy bibasilar infiltrates have improved since the previous exa m from 2 months ago. 2. Atherosclerosis. POS: [facility]
[2017-05-09 16:32] LABS: #Lymphocytes 0.9 thou/uL (1.20-3.40); #Monocytes 1.6 thou/uL (0.11-0.59); #Neutrophils 10.8 thou/uL (1.40-6.50); %Eosinophils 0.1 % (0.0-10.0); %Lymphocytes 6.8 % (21.0-51.0); %Monocytes 12.1 % (0.0-10.0); %Neutrophils 80.9 % (42.0-75.0); Hemoglobin 11.6 g/dL (14.0-18.0); Mean Corpuscular Hemoglobin 32.8 pg (27.0-31.0); Mean Corpuscular Volume 99.4 fl (80.0-94.0); Mean Platelet Volume 10.1 fL (7.4-10.4); Platelet Count 124 thou/uL (130-400); RBC Distribution Width 13.4 % (11.5-14.5); Red Blood Cell (RBC) Count 3.54 mill/uL (4.70-6.10); White Blood Cell (WBC) Count 13.4 thou/uL (4.8-10.8)
[2017-05-09 16:39] LABS: INR-International Normal Ratio 1.4; PTT 42.9 SEC (22.9-36.1); Prothrombin Time 17.6 SEC (12.0-14.7)
[2017-05-09 16:53] LABS: ALT (SGPT) 16 U/L (8-55); AST (SGOT) 34 U/L (5-34); Albumin 3.7 g/dL (3.4-4.8); Alkaline Phosphatase 102 U/L (40-150); Anion Gap 16 mmol/L (10-20); BUN (Urea Nitrogen) 31 mg/dL (8.4-25.7); Bilirubin, Total 1.1 mg/dL (0.2-1.2); CK (CPK) 29 U/L (30-200); Calc. Creatinine Clearance 0 mL/min (70-130); Calcium 9.4 mg/dL (7.8-10.44); Carbon Dioxide 26 mmol/L (23-31); Chloride 90 mmol/L (98-107); Estimated GFR-MDRD 34; Globulin 3.2 g/dL (2.4-3.5); Glucose 95 mg/dL (83-110); Potassium 5.2 mmol/L (3.5-5.1); Protein, Total 6.9 g/dL (5.8-8.1); Sodium 127 mmol/L (136-145)
[2017-05-09 16:58] LABS: CKMB 0.6 ng/mL (0-6.6); Troponin I 0.214 ng/mL (< 0.028)
--- NOTE | 2017-05-09 17:38 | CT ---
CT OF HEAD NONCONTRAST 05/09/17 CLINICAL HISTORY: Altered mental status. FINDINGS: There is moderate chronic microvascular ischemic disease without evidence of intracranial hemorrhage, mass effect or midline shift. There are superimposed lacunar infarctions involving bilateral basal g anglia, right greater than left, as well as age-indeterminate lacunar infarctions of the bilateral ce rebellar hemispheres. Mild ex vacuo dilatation of the ventricular system present. Imaged paranasal si nuses are clear. IMPRESSION: 1. No acute intracranial hemorrhage or mass effect. 2. Moderate chronic microvascular ischemic disease. 3. Scattered bilateral cerebellar hemispheric lacunar infarctions, age indeterminate on the basi s of this exam. Correlate clinically. POS: [facility]
[2017-05-09 18:52] LABS: Bilirubin Small (Negative); Blood, Urine Negative (Negative); Clarity CLEAR (Clear); Glucose, Urine (Dipstick) Negative (Negative); Leukocyte Negative (Negative); Nitrite Negative (Negative); Protein, Urine (Dipstick) Negative (Neg-Trace); Urobilinogen 0.2 mg/dL (0.2-1.0)
--- NOTE | 2017-05-09 19:32 | CT ---
NONCONTRAST ABDOMEN AND PELVIC CT 05/09/17 INDICATION: Emergency exam for generalized weakness and fatigue with difficulty swallowing. FINDINGS: Bibasilar areas of consolidation are present and there is mild bilateral pleural fluid. There is prom inent retained fecal material throughout the colon compatible with constipation. Bowel is incompletel y assessed without enteric contrast. There is no free air or portal venous gas seen. Prior cholecyste ctomy. There is diffuse vascular disease. There is nonspecific retroperitoneal fat stranding. This is grossly stable to 08/15/16 exam. The kidne ys are atrophic with vascular calcification. Diffuse chronic appearing osseous changes are present an d there is postoperative fusion of the lumbar spine. Small volume of perihepatic fluid about the inferior aspect of the right hepatic lobe is present, dec reased in volume. IMPRESSION: Bibasilar consolidation with pleural fluid. Findings indicate pneumonia with parapneumonic effusion. Correlate clinically. This could relate to aspiration. Constipation. Stable retroperitoneal fat stranding. Evaluation otherwise limited without the presence of IV or enteric contrast. POS: [facility]
[2017-05-09] MEDS ORDERED: Aspirin 300 MG Suppository PR SCH (20:15)
[2017-05-09] MEDS ORDERED: Acetaminophen 325 MG TAB PO PRN (20:23)
[2017-05-09] MEDS ORDERED: Ondansetron ODT 4 MG TAB SL PRN (20:23)
[2017-05-09] MEDS ORDERED: Ondansetron HCl/PF 4 MG/2 ML Vial IVP PRN (20:23)
[2017-05-09 20:40] LABS: Lactic Acid 0.8 mmol/L (0.5-2.2)
[2017-05-09 21:04] LABS: Troponin I 0.203 ng/mL (< 0.028)
[2017-05-09] MEDS ORDERED: Vancomycin HCl 1.5 GM in Sodium Chloride 0.9% 250 ML 300 ML IVPB SCH (21:30)
[2017-05-09] MEDS ORDERED: Fleet Enema 133 ML BOT PR SCH (22:15)
[2017-05-09] MEDS: Sodium Chloride 0.9% 1,000 ML IV SCH (22:17)
[2017-05-09] MEDS: Heparin 5,000 UNITS/ML VIAL SC SCH (22:20)
[2017-05-09] MEDS: Famotidine/PF 20 mg/2ml Vial SLOW IVP SCH (22:20)
[2017-05-09] MEDS ORDERED: Refresh (Polyvinyl Alcohol 1.4%/Povidone 0.6%) Opth Drops EA EYE PRN ×2 (22:40→22:44)
[2017-05-10 02:50] LABS: #Lymphocytes 1.5 thou/uL (1.20-3.40); #Monocytes 0.8 thou/uL (0.11-0.59); #Neutrophils 7.5 thou/uL (1.40-6.50); %Basophils 0.1 % (0.0-1.0); %Eosinophils 0.3 % (0.0-10.0); %Lymphocytes 15.4 % (21.0-51.0); %Monocytes 7.7 % (0.0-10.0); %Neutrophils 76.5 % (42.0-75.0); Hemoglobin 10.4 g/dL (14.0-18.0); Mean Corpuscular HGB CONC 33.6 g/dL (32.0-36.0); Mean Corpuscular Hemoglobin 33.2 pg (27.0-31.0); Mean Platelet Volume 10.3 fL (7.4-10.4); Platelet Count 109 thou/uL (130-400); RBC Distribution Width 13.4 % (11.5-14.5); Red Blood Cell (RBC) Count 3.13 mill/uL (4.70-6.10); White Blood Cell (WBC) Count 9.8 thou/uL (4.8-10.8)
[2017-05-10 02:53] LABS: Troponin I 0.219 ng/mL (< 0.028)
[2017-05-10 02:57] LABS: Anion Gap 15 mmol/L (10-20); BUN (Urea Nitrogen) 33 mg/dL (8.4-25.7); Calc. Creatinine Clearance 34 mL/min (70-130); Calcium 8.9 mg/dL (7.8-10.44); Carbon Dioxide 24 mmol/L (23-31); Cardiac Risk 1.9 (Less than 4.5); Chloride 94 mmol/L (98-107); Cholesterol 92 mg/dl (< 200 Desired); Estimated GFR-MDRD 39; Glucose 87 mg/dL (83-110); HDL Cholesterol 48 mg/dL (>60 Neg Risk); LDL Cholesterol, Calculated 35 mg/dL; Sodium 128 mmol/L (136-145); Triglycerides 46 mg/dL (Less than 150)
[2017-05-10] MEDS: Sodium Chloride 0.9% 1,000 ML IV SCH ×2 (06:32→15:34)
--- NOTE | 2017-05-10 07:03 | HP ---
CHIEF COMPLAINT: Dysphagia and weakness x2 weeks with little to no oral intake in that timeframe. 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 The patient currently resides in a nursing facility and previously had been working with physical therapy for deconditioning. The patient approximately 2 weeks ago was noted to have progressive insidious onset of dysphagia, significantly decreased oral intake, to the point that earlier today when he tried to take any oral intake, he was simply unable to do so. This was not due to odynophagia per the patient. In this timeframe, the patient has also experienced increased overall fatigue and some slurring of the speech. The patient's family is concerned that he intermittently demonstrates some facial droop as well. He has had prior similar episodes, which has since resolved. REVIEW OF SYSTEMS: As per HPI. Constitutional: No recent fevers or chills. Unclear if he has had actual weight loss, over the last 2 weeks have significantly decreased oral intake. HEENT: No new vision changes, lightheadedness or dizziness. Cardiovascular: S1, S2, prominent systolic ejection murmur heard throughout the precordium, 3/5. Pulses 2+ bilateral upper extremities. A 2+ pitting pedal edema. Respiratory: Grossly clear to auscultation. No wheezes, rales or rhonchi. Trace bilateral lower lobe bibasilar crackles. Abdomen: Positive bowel sounds, soft, very tender to palpation throughout in all quadrants. Musculoskeletal: The patient complains of significant amount of acute on chronic musculoskeletal pain, being further defined as worsening over the last 2 weeks with decreased movement. PAST MEDICAL HISTORY: As per HPI. PAST SURGICAL HISTORY: Includes carotid endarterectomy in 2017, cholecystectomy , status post back surgery x4, status post tonsillectomy. HOME MEDICATIONS: Please see the EMR for full details. However, the patient has not been able to take his medications earlier today. ALLERGIES: PENICILLIN, unknown reaction. FAMILY HISTORY: No known history of dysphagia. SOCIAL HISTORY: The patient is accompanied today by his daughter and his . He wishes to be FULL CODE at this point in time and his is designated decision maker if he is unable to make his own medical decisions. He still actively intermittently uses tobacco products, but otherwise denies any alcohol or illicit drug use. PHYSICAL EXAMINATION: VITAL SIGNS: Temperature is 98.0, heart rate is 91, respirations 20, satting 94 % on room air, blood pressure is 98/48. GENERAL: The patient is hard of hearing, but otherwise in no acute distress, lying in the hospital bed, answers questions appropriately. HEENT: Dry mucous membranes. Equal ocular motions are intact. Pupils are equal and reactive. Normocephalic, atraumatic. LABORATORY DATA AND IMAGING: WBC 13.4, hemoglobin 11.6, hematocrit 35.2, platelets 124. INR 1.4. Sodium 127, potassium 5.2, chloride 90, bicarbonate 26 , BUN 31, creatinine 1.66, glucose is 95. Lactic acid is 0.8, calcium 9.4, AST 34, ALT 16, alkaline phosphatase 102. Creatine kinase of 29. Initial troponin 0.214 followed by 0.203. BNP 1390. UA significant for small bilirubin and kellee color, otherwise benign. ASSESSMENT AND PLAN: An 86-year-old male who presents with a 2-week history of progressive dysphagia. 1. Progressive dysphagia, unclear etiology. The patient's daughter at bedside states that the patient has been trying to work with speech therapy. They are currently requesting speech therapy and consideration for barium swallow evaluation. The patient currently has no difficulty with verbalization or conversation or slurred speech at this point in time. 2. Concern for volume depletion and dehydration secondary to decreased oral intake. Gentle hydration at 100 mL an hour, will be held n.p.o. until diet determined by speech evaluation. This is likely the etiology of the patient's _ ____ hemoglobin, which is actually higher than his baseline. I suspect a component of hemoconcentration. 3. Acute kidney injury with some mild hyponatremia and hyperkalemia. Maintain the patient on telemetry. I will hydrate the patient. Recheck in the morning. I appreciate Nephrology consultation. 4. Elevated troponin, suspect that type 2 etiology. Trend troponin. The patient states that his color depositing machine tender is Dr. Bronson. We will obtain a Cardiology consultation. To consider echocardiogram as well and they repeat EKG in the morning. 5. Leukocytosis, unclear if it is reactive versus reflective of an underlying infectious or inflammatory process. Lactate is not elevated at this point in time. UA is bland. Chest x-ray suggests the possibility of a pneumonia or aspiration pneumonia. We will treat pneumonia and repeat a CBC in the morning. 6. Pneumonia, left lower lobe, location concern for aspiration. Also consistent with the patient's dysphagia, which raises his risk for aspiration as well. As the patient has been residing in a nursing facility and has been inpatient within the last 3 months, we will place the patient on vancomycin and Levaquin. 7. Chronic pain. It appears that approximately 2 weeks ago at the onset of symptoms, the patient was transitioned from his oral regimen previously to an escalated regimen including fentanyl. I am not sure perhaps increased narcotic usage has reelicited previously known deficits from his prior stroke. We will continue on a decreased modified pain regimen. We will close monitoring of the patient's pain status to ensure he is comfortable. 8. Diet: N.p.o. IV fluids as above. 9. Activity: We will consult physical therapy, occupational therapy, and speech therapy. 10. Admit the patient to inpatient. Thank you for asking me to care for your patient. If questions or concerns, contact me at [facility]. TEODORA
[2017-05-10] MEDS: Famotidine/PF 20 mg/2ml Vial SLOW IVP SCH ×2 (09:01→21:34)
[2017-05-10] MEDS: Heparin 5,000 UNITS/ML VIAL SC SCH ×3 (09:01→21:33)
[2017-05-10 09:11] LABS: Troponin I 0.218 ng/mL (< 0.028)
[2017-05-10] MEDS: fentaNYL 50 mcg/hour Patch TD SCH (09:57)
--- NOTE | 2017-05-10 11:01 | CON ---
NEPHROLOGY CONSULTATION NOTE DATE OF CONSULTATION: 05/10/2017 REASON FOR CONSULTATION: Elevated creatinine. HISTORY OF PRESENTING ILLNESS: This is a very pleasant 86-year-old gentleman with a baseline creatin ine of 1.2-1.3 who presented to the hospital with a creatinine of 1.8 as well as an elevated potassiu m. The patient has a history of BPH, CKD, squamous cell carcinoma of the lung and had poor p.o. inta ke. After hydration, the patient's creatinine improved and potassium improved. PAST MEDICAL HISTORY: Significant for hypertension, BPH, peripheral vascular disease, congestive hea rt failure, dysphagia, dementia, carotid endarterectomy, cholecystectomy and back surgery. HOME MEDICATIONS: List reviewed. HOSPITAL MEDICATIONS: List reviewed. ALLERGIES: Reviewed. SOCIAL ECONOMIC HISTORY: No alcohol or drug use. PHYSICAL EXAMINATION: GENERAL: The patient is awake and alert. VITAL SIGNS: Afebrile, pulse 70, breathing at 16 and blood pressure 98/48. HEAD/NECK: Normocephalic. Atraumatic. EYES: EOMI. No deformity. EARS: Clear. No ulcers. NOSE: Intact. No lesions. MOUTH: Clear. No discharge. THROAT: Clear. No exudate. LUNGS: Clear. No crackles. CARDIAC: S1, S2. No rub. ABDOMEN: Benign. BS+. GENITALIA/RECTUM: Yoo absent. BACK/EXTREMITIES: Edema 0+ Ulcer- NEUROLOGICAL: Alert and motor intact. SKIN: Rash-. Bruise-. LYMPHATICS: Edema-. Ulcer-. REVIEW OF SYSTEMS: A 12-point review of systems was performed and was negative except for positives noted above. GENERAL: Weakness-. HEAD: Headache-. NECK: No swelling or lumps. NOSE: No epistaxis or discharge. EYES: No diplopia or pain. RESPIRATORY: Dyspnea-. CARDIOVASCULAR: Chest pain-. GASTROINTESTINAL: Nausea-. /AUTOMATIC TRIMMING SEWER: Hematuria-. MUSCULOSKELETAL: No joint pain. NEUROPSYCHIATIC SYSTEMS: No suicidal ideation. No ideation. SKIN: Denies any rash or ulcer. CONSTITUTIONAL: No fever or chills. LABORATORY DATA: Labs showed creatinine of 1.6 and potassium 5. ASSESSMENT AND RECOMMENDATIONS: 1. Acute kidney injury with chronic kidney disease, most likely due to decreased effective arterial blood volume. Continue gentle hydration. 2. Hypertension, stable. 3. Hyperkalemia, improved. 4. Hyponatremia due to renal failure. No indication for dialysis at this time. The patient has had renal imaging.
--- NOTE | 2017-05-10 11:24 | RAD ---
MODIFIED BARIUM SWALLOW: HISTORY: Dysphagia. Feeding difficulties. FINDINGS: Exam was performed in conjunction with speech pathology with multiple consistencies. Video review is available. There is early spill of contrast with all consistencies, worse with the thinner consiste ncies. Good bolus formation and retropulsion were apparent. Slight delay in initiation of swallowin g with the thinner consistencies. Deep penetration was demonstrated with nectar-thick liquid. No fr ank aspiration was visible. Moderate degree of pooling/residue. Partial clearing with additional sw allows. The esophagus below the level of the hypopharynx is not evaluated. Please see detailed report from [facility]. POS: [facility]
--- NOTE | 2017-05-10 11:56 | MRI ---
MRI OF THE BRAIN WITHOUT CONTRAST: COMPARISON: 07/03/16. HISTORY: Generalized weakness and inability to swallow for 2 weeks. TECHNIQUE: Multiplanar, multisequence MR images were obtained of the brain without IV contrast. FINDINGS: There are scattered foci of high T2/FLAIR signal in the subcortical and periventricular white matter, likely secondary to small-vessel ischemic disease. These are stable compared to the prior examinati on. No restricted diffusion is seen to suggest an acute infarction. There is no evidence of hydrocephalus, intracranial hemorrhage, or extraaxial fluid collection. The expected flow voids are present. The corpus callosum, pituitary, and craniocervical junction are unr emarkable. The calvarium and overlying soft tissues are unremarkable. A small amount of fluid is seen in the ri ght mastoid air cells. IMPRESSION: 1. No evidence of acute intracranial abnormality. 2. Small-vessel ischemic disease. 3. Right mastoid fluid. POS: [facility]
--- NOTE | 2017-05-10 16:04 | PRG ---
DATE OF SERVICE: 05/10/2017 SUBJECTIVE: The patient seen and examined at bedside. He just came back from the Radiology Departme where he had an MRI on his brain done. He is not complaining about anything specifically. He has some cough, which is going on for several days. OBJECTIVE: VITAL SIGNS: Blood pressure is 113/56, pulse is 82, respiratory rate is 14, temperature is 98.0, O2 saturation is 94% on room air. HEENT: His eyes are PERRLA. Conjunctivae is pinkish. Oral mucosa is moist. NECK: Supple. LUNGS: Clear. HEART: S1, S2 normal, no S3, no S4, although it is irregularly irregular. ABDOMEN: Soft, nontender, nondistended. Bowel sounds are present. No organomegaly. EXTREMITIES: No clubbing, cyanosis or edema. NEUROLOGIC: He is able to answer my questions. He follows my commands. He moves his all 4 extremit ies. There are no any sensory or motor deficits present. Cranial nerves are intact. LABORATORY DATA: Showed a white count of 9.8, hemoglobin 10.4, hematocrit 31.0, platelet count is 10 9. Sodium of 128, chloride 94, BUN 33, creatinine 1.67, calcium 8.9. Troponin I is ranging from 0.2 03 to 0.218 x3. BNP was elevated at 1390.7. Triglycerides 46, cholesterol 92, LDL 35, HDL 49. Brai n MRI was done which showed scattered foci of high T2/flair signal in the subcortical and periventric ular white matter, likely secondary to small vessel ischemic disease, and there was no any evidence o f any new infarction. There was small amount of fluid in the right mastoid air cells. IMPRESSION: 1. Progressive dysphagia of unclear etiology. Barium swallow study did not show any aspiration, but it definitely showed some abnormalities in terms of deep penetration with nectar - thick liquid and moderate degree of pulling/residue. There was early spill of contrast with all consistencies worse w ith the thenar consistencies. 2. Acute kidney injury with probably some dehydration and mild hyponatremia and hypochloremia. The patient was to getting IV fluids. He seems to be doing better. Nephrology is consulted. 3. Elevated troponin x4, unclear etiology, most likely it is demand ischemia. We are going to resta rt him on aspirin and Cardiology is consulted and an echocardiogram is pending. 4. Leukocytosis, resolved. 5. A questionable bilateral lower lobe pneumonia present on CT of the abdomen, not seen on regular x -rays. The patient is covered with vancomycin and Levaquin at this point. We will continue both ant ibiotics until we have more clear picture. 6. Chronic pain, on fentanyl patch. PLAN: Admission above. We would continue both antibiotics. We are awaiting Cardiology consultation for further recommendation on his elevated troponin levels. It seems to me that he might have aspir ation to both lower lobes and this could be somehow related to his central nervous system dysfunction . It appears to me that he has multiple areas of ischemia on his images. He was restarted on his am iodarone and diltiazem, and his vancomycin is stopped and clindamycin is started for possible infecti ous/aspiration pneumonitis. 1.
[2017-05-10] MEDS: Acetaminophen/Codeine 30-300mg Tablet PO PRN (21:32)
[2017-05-10] MEDS: traZODone HCl 50 MG TAB PO SCH (21:32)
[2017-05-10] MEDS: Clindamycin/D5W 600 MG in Premix Bag 1 BAG IVPB SCH (21:34)
[2017-05-11] MEDS ORDERED: Vancomycin HCl 750 MG in Sodium Chloride 0.9% 250 ML 250 ML IVPB SCH (01:00)
[2017-05-11] MEDS: Sodium Chloride 0.9% 1,000 ML IV SCH ×3 (01:18→14:32)
[2017-05-11 05:10] LABS: #Lymphocytes 1.3 thou/uL (1.20-3.40); #Monocytes 0.6 thou/uL (0.11-0.59); #Neutrophils 4.3 thou/uL (1.40-6.50); %Basophils 0.6 % (0.0-1.0); %Eosinophils 0.6 % (0.0-10.0); %Lymphocytes 20.7 % (21.0-51.0); %Monocytes 9.8 % (0.0-10.0); %Neutrophils 68.3 % (42.0-75.0); Hemoglobin 10.2 g/dL (14.0-18.0); Mean Corpuscular HGB CONC 33.2 g/dL (32.0-36.0); Mean Corpuscular Hemoglobin 33.1 pg (27.0-31.0); Mean Corpuscular Volume 99.8 fl (80.0-94.0); Mean Platelet Volume 9.9 fL (7.4-10.4); Platelet Count 112 thou/uL (130-400); RBC Distribution Width 13.4 % (11.5-14.5); Red Blood Cell (RBC) Count 3.07 mill/uL (4.70-6.10); White Blood Cell (WBC) Count 6.3 thou/uL (4.8-10.8)
[2017-05-11] MEDS: Clindamycin/D5W 600 MG in Premix Bag 1 BAG IVPB SCH ×3 (05:20→22:07)
[2017-05-11 05:30] LABS: Anion Gap 13 mmol/L (10-20); BUN (Urea Nitrogen) 27 mg/dL (8.4-25.7); Calc. Creatinine Clearance 45 mL/min (70-130); Calcium 8.7 mg/dL (7.8-10.44); Carbon Dioxide 22 mmol/L (23-31); Chloride 100 mmol/L (98-107); Estimated GFR-MDRD 54; Glucose 79 mg/dL (83-110); Potassium 4.5 mmol/L (3.5-5.1); Sodium 130 mmol/L (136-145)
--- NOTE | 2017-05-11 05:41 | CON ---
DATE OF CONSULTATION: 05/10/2017 HISTORY OF PRESENT ILLNESS: The patient is an unfortunate 86-year-old gentleman who presents with dysphagia and inability to swallow. The patient has a history of mild congestive heart failure. He had been hospitalized previously with pneumonia. He has a history of hypertension. During his last hospitalization. The patient was started on amiodarone. A recent echocardiogram revealed an ejection fraction of 45-50%. The patient presents with increasing difficulty swallowing. The patient denies having any chest discomfort. The patient denies having any dyspnea. PAST MEDICAL HISTORY: 1. Hypertension. 2. Pneumonia. 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 4. BPH. 5. Peripheral vascular disease. PAST SURGICAL HISTORY: Carotid endarterectomy, cholecystectomy, tonsillectomy, and multiple back surgeries. ALLERGIES: PENICILLIN. MEDICATIONS: See nursing list. SOCIAL HISTORY: He lives with his , nonsmoker. REVIEW OF SYSTEMS: Ten point system noticeable for increasing weakness. PHYSICAL EXAMINATION: GENERAL: This is a thin gentleman in no acute distress. Blood pressure was 90/ 60. NECK: Showed no jugular venous distention. LUNGS: Have a few crackles in both bases. HEART: Regular rate and rhythm, normal S1, S2 with a 2/6 systolic murmur. ABDOMEN: Nondistended. EXTREMITIES: Showed trace bilateral edema. SKIN: Warm and dry. VASCULAR: Radial pulses 2+. LABORATORY RESULTS: Sodium 120, potassium 5.0, chloride 94, BUN 33, creatinine 1.67. Troponin was 0.218. His BNP was 1390. His EKG revealed him to have normal sinus rhythm with a nonspecific interventricular conduction delay. T- wave abnormality suggestive of ischemia. His echocardiogram revealed severe decrease in left ventricular systolic function, estimated ejection fraction 20- 25% with a moderately dilated left ventricle. IMPRESSION: 1. Dysphagia. 2. Cardiomyopathy. 3. Diabetes mellitus. 4. History of squamous cell carcinoma. 5. History of lymphoma. 6. Renal insufficiency. This gentleman presents with dysphagia. He is undergoing an evaluation. From a cardiac standpoint, with his decreased left ventricular function he should not be on a calcium jomar. We will discontinue Cardizem. The patient is unable to take p.o. medications at this time. We will follow this patient with you. Further recommendations to follow. MTDD
[2017-05-11] MEDS ORDERED: Aspirin 300 MG Suppository PR SCH (09:00)
[2017-05-11] MEDS ORDERED: Amiodarone 200 MG TAB PO SCH (09:00)
[2017-05-11] MEDS: Famotidine/PF 20 mg/2ml Vial SLOW IVP SCH ×2 (09:46→22:08)
[2017-05-11] MEDS: Amiodarone 200 MG TAB PO SCH (09:47)
[2017-05-11] MEDS: Lisinopril 2.5 MG TAB PO SCH (09:47)
[2017-05-11] MEDS: Aspirin 81 mg Enteric Coated Tablet PO SCH (09:47)
[2017-05-11] MEDS: Heparin 5,000 UNITS/ML VIAL SC SCH (10:17)
--- NOTE | 2017-05-11 15:33 | PDOC.PN ---
- Subjective Encounter Start Date: 05/11/17 Encounter Start Time: 15:52 Subjective: No new complaints. However still NPO -: No acute events overngiht. \ - Objective Resuscitation Status: Resuscitation Status FULL:Full Resuscitation MAR Reviewed: Yes Vital Signs & Weight: Vital Signs (12 hours) Temp Pulse Pulse Resp BP BP Pulse Ox 05/11/17 12:00 98.6 F 79 16 109/57 L 95 05/11/17 09:47 78 05/11/17 08:40 97.5 F L 78 18 94 L 05/11/17 08:23 83 99/58 L 05/11/17 07:50 97.5 F L 78 18 113/60 94 L 05/11/17 04:33 98.2 F 83 20 123/64 94 L Weight Admit Weight 175 lb Weight 175 lb Result Diagrams: 05/11/17 04:19 05/11/17 04:19 Phys Exam - Physical Examination Constitutional: NAD HEENT: PERRLA, moist MMs, sclera anicteric Neck: supple, full ROM Respiratory: no wheezing, no rales, no rhonchi, clear to auscultation bilateral Cardiovascular: RRR, no significant murmur, no rub Gastrointestinal: soft, non-tender, no distention, positive bowel sounds Musculoskeletal: no edema, pulses present Neurological: non-focal, moves all 4 limbs Psychiatric: normal affect, A&O x 3 Skin: no rash, normal turgor Dx/Plan (1) Dysphagia Code(s): R13.10 - DYSPHAGIA, UNSPECIFIED Status: Acute Qualifiers: Dysphagia type: unspecified Qualified Code(s): R13.10 - Dysphagia, unspecified Comment: not fit to swallo. MRI brainand barium swallow negative. GI consulted for PEG (2) Non-ST elevation myocardial infarction (NSTEMI), type 2 Code(s): I21.A1 - MYOCARDIAL INFARCTION TYPE 2 Status: Acute Comment: Stable. chest pain free. (3) Chronic pain Code(s): G89.29 - OTHER CHRONIC PAIN Status: Acute Qualifiers: Chronic pain type: other chronic pain Qualified Code(s): G89.29 - Other chronic pain Comment: Continue fentanyl (4) Thrombocytopenia Code(s): D69.6 - THROMBOCYTOPENIA, UNSPECIFIED Status: Acute Comment: Monitor. Asymptomatic. Discontinue heparin, continue SCDs (5) Pneumonia Code(s): J18.9 - PNEUMONIA, UNSPECIFIED ORGANISM Status: Acute Qualifiers: Pneumonia type: due to unspecified organism Laterality: bilateral Comment: Continue clinda and Levo for now. Cxs negative so far. 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 (8) Physical deconditioning Code(s): R53.81 - OTHER MALAISE Status: Chronic Comment: Continue PT/OT - Plan cont current plan of care, plan discussed w/ family, PT/OT, social worker psychiatric, speech therapy * .
[2017-05-11] MEDS ORDERED: Melatonin 3 MG TAB PO PRN (15:56)
[2017-05-11] MEDS ORDERED: Ondansetron ODT 4 MG TAB PO PRN (15:57)
--- NOTE | 2017-05-11 17:45 | ULT ---
RENAL ULTRASOUND: Indication: Rule out hydronephrosis. FINDINGS: Right kidney measures 10.9 x 4.3 x 4.2 cm. Left kidney measures 11 x 6.0 x 4.6 cm. Pre void bladder v olume is 597.6 cc. There is mild ascites present. No hydronephrosis is demonstrated. IMPRESSION: 1. No hydronephrosis. 2. Pre void bladder volume is 597.6 cc. POS: [facility]
[2017-05-11] MEDS: Acetaminophen/Codeine 30-300mg Tablet PO PRN (18:24)
--- NOTE | 2017-05-11 18:45 | PRG ---
DATE OF SERVICE: 05/11/2017 SUBJECTIVE: Patient was seen and examined at bedside and overnight events noted. Patient denies any shortness of breath or chest pain or palpitation. No history of nausea or vomiting or diarrhea or f ever or chills or cramps. OBJECTIVE: GENERAL: This is an elderly male, in no apparent distress. VITAL SIGNS: Temperature 99.8, pulse 80, respiratory rate 14, blood pressure 104/53. HEENT: Atraumatic, normocephalic. Oral mucosa is moist. NECK: Supple. CARDIOVASCULAR: S1, S2 heard. Rate and rhythm regular. RESPIRATORY: Clear to auscultation. GASTROINTESTINAL: Abdomen is soft. MUSCULOSKELETAL: No tenderness. No edema. DERMATOLOGIC: No skin rash. NEUROLOGIC: Alert and awake and oriented x3. No focal neurologic deficits. Moving all the extremiti es. PSYCHIATRIC: Mood and affect normal. LABORATORY DATA: Potassium is 4.5, BUN is 27, creatinine is 1.27. ASSESSMENT AND PLAN: 1. Acute kidney injury on chronic kidney disease. 2. Renal function is better with IV hydration. Continue gentle hydration. 3. Hypertension. 4. Hyperkalemia. 5. Hyperlipidemia, stable. 6. Continue hydration and monitor renal function and avoid nephrotoxins.
[2017-05-11] MEDS: Finasteride 5 MG TAB PO SCH (22:08)
[2017-05-11] MEDS: traZODone HCl 50 MG TAB PO SCH (22:08)
[2017-05-11] MEDS: Donepezil HCl 10 MG TAB PO SCH (22:08)
[2017-05-11] MEDS: Cyclobenzaprine 10 MG TAB PO SCH (22:09)
[2017-05-12 05:28] LABS: #Monocytes 0.5 thou/uL (0.11-0.59); %Basophils 0.4 % (0.0-1.0); %Eosinophils 0.5 % (0.0-10.0); %Monocytes 6.8 % (0.0-10.0); %Neutrophils 79.2 % (42.0-75.0); Hemoglobin 10.2 g/dL (14.0-18.0); Mean Corpuscular HGB CONC 32.1 g/dL (32.0-36.0); Mean Corpuscular Hemoglobin 32.4 pg (27.0-31.0); Mean Platelet Volume 9.5 fL (7.4-10.4); Platelet Count 136 thou/uL (130-400); RBC Distribution Width 13.4 % (11.5-14.5); Red Blood Cell (RBC) Count 3.17 mill/uL (4.70-6.10); White Blood Cell (WBC) Count 7.6 thou/uL (4.8-10.8)
[2017-05-12 05:35] LABS: Hemoglobin A1c 4.9 % (4.0-6.0)
[2017-05-12] MEDS: Clindamycin/D5W 600 MG in Premix Bag 1 BAG IVPB SCH ×3 (05:47→21:32)
[2017-05-12] MEDS: traZODone HCl 50 MG TAB PO SCH ×2 (05:47→21:31)
[2017-05-12 05:57] LABS: Anion Gap 9 mmol/L (10-20); BUN (Urea Nitrogen) 25 mg/dL (8.4-25.7); Calc. Creatinine Clearance 41 mL/min (70-130); Calcium 8.4 mg/dL (7.8-10.44); Carbon Dioxide 24 mmol/L (23-31); Chloride 101 mmol/L (98-107); Estimated GFR-MDRD 48; Glucose 90 mg/dL (83-110); Potassium 4.2 mmol/L (3.5-5.1); Sodium 130 mmol/L (136-145)
--- NOTE | 2017-05-12 08:01 | CON ---
DATE OF CONSULTATION: 05/11/2017 REFERRING PHYSICIAN: Dr. Lon More, [facility]. REASON FOR CONSULTATION: Decreasing oral intake over the last 2 weeks and there is questionable hist ory of aspiration. Although, this is consultation for dysphagia, the patient denied dysphagia. HISTORY OF PRESENT ILLNESS: Mr. Jonathan Olivera is an 86-year-old male with history of angelita ign prostatic hypertrophy, peripheral vascular disease. The patient also had surgery for squamous ce ll carcinoma of the tongue in the past and has undergone subsequent chemotherapy. The patient is in nursing facility and over the last couple of weeks, he ate very little. He was then chewing the food , but does not swallow and he was spitting it out. I did spend about 15 minutes with him watching hi s eating. He puts the food in the mouth and keep chewing and then he spits it out. He is not able t o actually swallow. However, he is able to drink liquids and also he was able to some fresh oranges small amount. The patient is awake and communicative. The patient denies any dysphagia. Denies any odynophagia. He says he does not have any pain when he swallows. At the halfway, information that apparently this patient has been not eating well over the last couple of weeks and also he keeps the food in the mouth keeps chewing and spitting it up. There is also questionable history of aspir ation. The patient had no similar episodes in the past. There is no history of fatigue, lack of elizabeth rgy over the last couple of weeks. There is some question of slurring of speech and also facial droo p as well. He has no other relevant history. ALLERGIES: PENICILLIN. SOCIAL HISTORY: The patient is . He used to smoke before, does not smoke anymore. No alcoho l intake. MEDICAL ILLNESSES: 1. History of liver abscess and was seen by Dr. Reyes in the past and was on antibiotics. 2. Carcinoma of the tongue, status post surgery and also status post chemotherapy in the past. 3. 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 Subsequently, seen Dr. Coyne and underwent radiation therapy and . 4. Liver acidosis in the past. 5. Pneumonia, left lower lobe, possibly aspiration pneumonia. 6. Acute kidney injury. 7. Elevated troponin, being seen by Cardiology. 8. Acute kidney injury with hyponatremia and also hyperkalemia. SURGERIES: 1. Status post carotid endarterectomy in 2017. 2. Prior cholecystectomy. 3. Status post back surgery x4. 4. Status post tonsillectomy. FAMILY HISTORY: Cancer, stroke, heart disease. MEDICATIONS: List reviewed. PHYSICAL EXAMINATION: GENERAL: The patient is awake, alert, communicative. He is alert and oriented to time, place and pe rson. He is able to eat and he puts some food into the mouth and constantly chewing and then spittin g it out. However, he is able to drink liquids and also . VITAL SIGNS: His temperature 98 degrees Fahrenheit, pulse is 91, blood pressure is 100/70. HEENT: Conjunctivae clear. NECK: Supple. No adenitis or thyromegaly noted. CARDIOVASCULAR SYSTEM: First and second heart sounds normal. LUNGS: Clear to auscultation. ABDOMEN: Soft to palpate. Abdomen is nontender. There is no organomegaly or masses. EXTREMITIES: Reveal no edema. LABORATORY DATA: WBC 13,400, hemoglobin 11.6, hematocrit 35.2, MCV is normal, platelet count 24,000. INR 1.4. Sodium 127, potassium 5.2, chloride 90, bicarbonate 26, BUN 31, creatinine 1.66, glucose 95. Lactic acid 0.8, calcium 9.4, AST 34, ALT 16, alkaline phosphatase 102. Initial troponin 0.1214 and subsequently 0.203. BNP 1390. Urinalysis unremarkable. CLINICAL IMPRESSION: An 86-year-old male with generalized weakness, questionable history o f slurring of speech and also decreasing oral intake over the last couple of weeks. I did speak to Rabia Olivera who is in the room and she tells me that her has not really eaten anything over t he last couple of weeks. The family is concerned about is not eating well for the last couple of wee ks. Apparently, the son wants to have NG tube placement done because of oral intake. I did speak to Mr. Olivera and explained the procedure. He was explained that he needs to have a PEG tube placemen t for adequate nutrition. He was informed that he started eating better later on if the possibility that it could be remove the G tube later on. The patient is agreeable. I will plan for the EGD and PEG tube placement tomorrow. Cardiology consult with Dr. Rodolfo Martinez and they all are planning for a cardiac workup. CLINICAL IMPRESSION: 1. Questionable history of dysphagia, but the patient denied dysphagia. It is more of decreasing or al intake and not able to chew and keep spitting it out. 2. Cardiomyopathy. 3. Diabetes mellitus. 4. Hypertension. 5. Squamous cell carcinoma of the tongue, status post surgery, status post chemotherapy. 6. Status post radiation therapy for retroperitoneal lymphoma in 2004. 7. Renal insufficiency. 8. Benign prostatic hypertrophy. 9. Peripheral vascular disease. PLAN: EGD and PEG tube placement tomorrow.
[2017-05-12] MEDS ORDERED: Sodium Chloride 0.9% 500 ML IV SCH ×2 (08:45→11:30)
[2017-05-12 10:23] VITALS: BMI 26.9
--- NOTE | 2017-05-12 11:53 | PRG ---
Patient Name: ROSALINDA ARMENDARIZ Date of service: 05/12/2017 Subjective: Patient was seen and examined at bedside and overnight events noted. Patient denies any shortness of breath or chest pain or palpitation. No history of nausea or vomiting or diarrhea or fever or chills or cramps. Objective: General: This is an elderly male in no apparent distress. He is frustrated. He is NPO for a proced ure today. Vital signs: Temperature 97.2, pulse 70, respirations 18, blood pressure 103/55. HEENT: Atraumatic, normocephalic. Oral mucosa is moist. Neck: Supple. Cardiovascular: S1 S2 heard. Rate and rhythm regular. Respiratory: Clear to auscultation. Gastrointestinal: Abdomen is soft. Musculoskeletal: No tenderness. No edema. Dermatologic: No skin rash. Neurologic: Alert and awake and oriented X3. No focal neurologic deficits. Moving all the extremit ies. Psychiatric: Mood and affect normal. LABORATORY DATA: Potassium is 4.2, creatinine is 1.3. ASSESSMENT AND PLAN: 1. Acute kidney injury on chronic kidney disease stage 3. Kidney function seems to be slightly bett er. Will have hydration, adjust dose at 30 mL per hour for a total of 500 mL especially if he is n. p.o. 2. Hypertension. 3. Cardiorenal syndrome. 4. Hyperkalemia. 5. Hypertension, stable. 6. Edema, controlled. He will have gentle hydration. We will follow renal function.
[2017-05-12] MEDS: Aspirin 81 mg Enteric Coated Tablet PO SCH (12:27)
[2017-05-12] MEDS: Amiodarone 200 MG TAB PO SCH (12:27)
[2017-05-12] MEDS: Docusate 100 MG CAP PO SCH (12:27)
[2017-05-12] MEDS: Lisinopril 2.5 MG TAB PO SCH (12:28)
[2017-05-12] MEDS: Famotidine/PF 20 mg/2ml Vial SLOW IVP SCH ×2 (12:28→21:32)
[2017-05-12] MEDS ORDERED: Clindamycin/D5W 600 mg/50 ml Premix Bag ONE (13:20)
[2017-05-12] MEDS ORDERED: Ondansetron HCl/PF 4 MG/2 ML Vial IVP PRN (13:47)
--- NOTE | 2017-05-12 14:11 | OP ---
DATE OF PROCEDURE: 05/12/2017 OPERATIVE PROCEDURE: Esophagogastroduodenoscopy with endoscopic gastrostomy tube placement. PREOPERATIVE DIAGNOSES: Poor oral intake, dysphagia, aspiration. POSTOPERATIVE DIAGNOSES: 1. Normal gastroscopy: 2. G-tube placed without difficulty. PROCEDURE IN DETAIL: The patient was placed on his back and the throat was anesthetized with Cetacai ne spray. The patient was already on scheduled antibiotics and no further antibiotics were given. A bite block was placed. A Pentax video gastroscope under direct vision was passed down the oropharyn x, past the gastroesophageal junction, into the stomach and subsequently into the descending duodenum . The esophageal mucosa appeared normal. No intrinsic lesions seen. The GE junction, no pathology seen. The fundus, cardia, gastric body, gastric antrum, and duodenum, no pathology seen. A gastrost kelvin tube site was marked by transillumination from within. The site was confirmed by applying finger pressure. The site was cleaned and surgically prepped. The site was anesthetized with 1% Xylocaine infiltration. Over the site, a size 16 Angiocath was advanced into the stomach. Through the Angioc ath, a guidewire was fed into the stomach. The wire was grasped with polypectomy snare and pulled ou tside the mouth. To the end of the guidewire protruding outside the mouth, a gastrostomy tube was co nnected. The wire was pulled back retrograde and the tube left in place. The patient rescoped again to confirm proper placement of G-tube. The stomach was decompressed and the scope removed. RECOMMENDATIONS: 1. We will start tube feeding after 6 p.m. today. 2. Diet as tolerated after 5 p.m. today.
[2017-05-12] MEDS ORDERED: Lorazepam 0.5 MG TAB PO PRN (14:56)
--- NOTE | 2017-05-12 14:57 | PDOC.PN ---
- Subjective Encounter Start Date: 05/12/17 Encounter Start Time: 14:51 Subjective: No acute events overnight -: GI reviewed, PEG tube today. -: Complains of some anxiety lw difficulty breathing - Objective Resuscitation Status: Resuscitation Status FULL:Full Resuscitation MAR Reviewed: Yes Vital Signs & Weight: Vital Signs (12 hours) Temp Pulse Resp BP Pulse Ox 05/12/17 12:28 76 05/12/17 11:30 97.9 F 76 20 103/54 L 96 05/12/17 08:30 98.2 F 74 16 103/55 L 94 L 05/12/17 04:00 97.8 F 82 16 131/62 94 L Weight Admit Weight 175 lb Weight 177 lb 2 oz I&O: 05/11/17 05/12/17 05/13/17 06:59 06:59 06:59 Intake Total 1000 Balance 1000 Result Diagrams: 05/12/17 04:59 05/12/17 04:59 Phys Exam - Physical Examination Constitutional: NAD HEENT: PERRLA, moist MMs, sclera anicteric Neck: supple, full ROM Respiratory: no wheezing, no rhonchi, clear to auscultation bilateral Cardiovascular: RRR, no significant murmur, no rub Gastrointestinal: soft, non-tender, no distention, positive bowel sounds Musculoskeletal: no edema, pulses present Neurological: non-focal, moves all 4 limbs Psychiatric: normal affect, A&O x 3 Skin: no rash, normal turgor Dx/Plan (1) Dysphagia Code(s): R13.10 - DYSPHAGIA, UNSPECIFIED Status: Acute Qualifiers: Dysphagia type: unspecified Qualified Code(s): R13.10 - Dysphagia, unspecified Comment: Unclear etiology. MRI brainand barium swallow negative. PEG placed 05/12 (2) Chronic pain Code(s): G89.29 - OTHER CHRONIC PAIN Status: Acute Qualifiers: Chronic pain type: other chronic pain Qualified Code(s): G89.29 - Other chronic pain Comment: Continue fentanyl (3) Thrombocytopenia Code(s): D69.6 - THROMBOCYTOPENIA, UNSPECIFIED Status: Acute Comment: Monitor. Asymptomatic. Hold heparin, continue SCDs (4) Pneumonia Code(s): J18.9 - PNEUMONIA, UNSPECIFIED ORGANISM Status: Acute Qualifiers: Pneumonia type: due to unspecified organism Laterality: bilateral Comment: Continue clinda and Levo for now. Cxs negative so far. (5) MARTHA (acute kidney injury) Code(s): N17.9 - ACUTE KIDNEY FAILURE, UNSPECIFIED Status: Acute Comment: Continue hydration (6) Diabetes type 2, controlled Code(s): E11.9 - TYPE 2 DIABETES MELLITUS WITHOUT COMPLICATIONS Status: Chronic Qualifiers: Diabetes mellitus complication status: without complication Diabetes mellitus skilled nursing insulin use: without skilled nursing use Qualified Code(s): E11.9 - Type 2 diabetes mellitus without complications Comment: Controlled and at goal. (7) Physical deconditioning Code(s): R53.81 - OTHER MALAISE Status: Chronic Comment: Continue PT/OT (8) Non-ST elevation myocardial infarction (NSTEMI), type 2 Code(s): I21.A1 - MYOCARDIAL INFARCTION TYPE 2 Status: Acute Comment: Stable. chest pain free. - Plan cont current plan of care, PT/OT, social insurance adviser * .
[2017-05-12] MEDS: Albuterol Sulfate 2.5 mg/3 ml Neb NEB PRN ×2 (15:28→19:54)
--- NOTE | 2017-05-12 16:02 | PRG ---
DATE OF SERVICE: 05/12/2017 SUBJECTIVE: Mr. Olivera recently underwent PEG tube placement. He recently was diagnosed with acute congestive heart failure. His last echo performed in the office dated 06/2016 with a normal LVEF. OBJECTIVE: VITAL SIGNS: Blood pressure 103/54, pulse 76, temperature 97.9. GENERAL: He does appear weak. NEUROLOGIC: The patient is alert and oriented times 3 with no focal neurologic deficits. HEENT: Sclerae without icterus. Mouth has moist mucous membranes with normal pallor. NECK: No JVD. Carotid upstroke brisk. No bruits bilaterally. LUNGS: Clear to auscultation with unlabored respirations. BACK: No scoliosis or kyphosis. CARDIAC: Regular rate and rhythm with normal S1 and S2. No S3 or S4 noted. No significant rubs, murmurs, thrills, or gallops noted throughout the precordium. PMI is not displaced. There is no parasternal heave. ABDOMEN: Soft, nontender, nondistended. No peritoneal signs present. No hepatosplenomegaly. No abnormal striae. EXTREMITIES: 2+ femoral and 2+ dorsalis pedis pulses. No cyanosis, clubbing, or edema. SKIN: No gross abnormalities. PERTINENT LABORATORY: Hemoglobin 10.2, creatinine 1.39. IMPRESSION: 1. Acute systolic heart failure. 2. Pneumonia. 3. Dysphagia. 4. Status post PEG tube placement. RECOMMENDATIONS: Mr. Olivera, decreased in LVEF appears to be new. This may be related to a recent pneumonia. Given his age and risk factors, we would recommend conservative therapy. He is currently on amiodarone therapy 200 mg q.a.m. in addition to aspirin and low dose lisinopril. We would contin ue. We will add low dose Coreg. Continue antibiotic treatment.
[2017-05-12] MEDS ORDERED: PHENYLEPHRINE-NS 100 MCG/ML 10 ML SYRINGE ONE (16:42)
[2017-05-12] MEDS: Potassium Chloride 10 MEQ TAB PO SCH (16:51)
[2017-05-12] MEDS: Sodium Chloride 0.9% 500 ML IV SCH (17:17)
[2017-05-12] MEDS: Finasteride 5 MG TAB PO SCH (21:31)
[2017-05-12] MEDS: Donepezil HCl 10 MG TAB PO SCH (21:32)
[2017-05-12] MEDS: Cyclobenzaprine 10 MG TAB PO SCH (21:32)
[2017-05-13 05:32] LABS: #Lymphocytes 1.2 thou/uL (1.20-3.40); #Monocytes 0.5 thou/uL (0.11-0.59); #Neutrophils 6.2 thou/uL (1.40-6.50); %Basophils 0.1 % (0.0-1.0); %Eosinophils 0.5 % (0.0-10.0); %Lymphocytes 14.7 % (21.0-51.0); %Monocytes 6.8 % (0.0-10.0); %Neutrophils 77.9 % (42.0-75.0); Hemoglobin 10.4 g/dL (14.0-18.0); Mean Corpuscular HGB CONC 32.3 g/dL (32.0-36.0); Mean Corpuscular Hemoglobin 32.6 pg (27.0-31.0); Mean Platelet Volume 9.9 fL (7.4-10.4); Platelet Count 128 thou/uL (130-400); RBC Distribution Width 13.5 % (11.5-14.5); Red Blood Cell (RBC) Count 3.17 mill/uL (4.70-6.10)
[2017-05-13 05:41] LABS: Anion Gap 10 mmol/L (10-20); BUN (Urea Nitrogen) 27 mg/dL (8.4-25.7); Calc. Creatinine Clearance 34 mL/min (70-130); Calcium 8.7 mg/dL (7.8-10.44); Carbon Dioxide 25 mmol/L (23-31); Chloride 101 mmol/L (98-107); Estimated GFR-MDRD 38; Glucose 109 mg/dL (83-110); Potassium 4.4 mmol/L (3.5-5.1); Sodium 132 mmol/L (136-145)
[2017-05-13] MEDS: Sodium Chloride 0.9% 500 ML IV SCH (06:18)
[2017-05-13] MEDS: fentaNYL 50 mcg/hour Patch TD SCH (06:18)
[2017-05-13] MEDS: Clindamycin/D5W 600 MG in Premix Bag 1 BAG IVPB SCH ×3 (06:46→21:23)
[2017-05-13] MEDS ORDERED: fentaNYL 50 mcg/hour Patch TD SCH (09:00)
[2017-05-13] MEDS: Docusate 100 MG CAP PO SCH (09:51)
[2017-05-13] MEDS: Potassium Chloride 10 MEQ TAB PO SCH (09:51)
[2017-05-13] MEDS: Amiodarone 200 MG TAB PO SCH (09:51)
[2017-05-13] MEDS: Aspirin 81 mg Enteric Coated Tablet PO SCH (09:52)
[2017-05-13] MEDS: Famotidine/PF 20 mg/2ml Vial SLOW IVP SCH ×2 (09:54→21:25)
[2017-05-13] MEDS: Albuterol Sulfate 2.5 mg/3 ml Neb NEB PRN ×3 (10:28→18:08)
--- NOTE | 2017-05-13 13:22 | PDOC.PN ---
- Subjective Encounter Start Date: 05/13/17 Encounter Start Time: 13:20 -: No acute events overnight -: No complaints today. - Objective Resuscitation Status: Resuscitation Status FULL:Full Resuscitation MAR Reviewed: Yes Vital Signs & Weight: Vital Signs (12 hours) Temp Pulse Pulse Pulse Resp BP BP 05/13/17 12:00 97.3 F L 86 16 05/13/17 11:46 86 86 99/51 L 97/50 L 05/13/17 10:28 80 16 05/13/17 08:00 97.5 F L 80 16 05/13/17 03:50 97.4 F L 84 18 BP Pulse Ox 05/13/17 12:00 99/51 L 94 L 05/13/17 11:46 05/13/17 10:28 05/13/17 08:00 111/56 L 96 05/13/17 03:50 101/49 L 94 L Weight Admit Weight 175 lb Weight 172 lb I&O: 05/12/17 05/13/17 05/14/17 06:59 06:59 06:59 Intake Total 1000 70 Balance 1000 70 Result Diagrams: 05/13/17 04:59 05/13/17 04:59 Phys Exam - Physical Examination Constitutional: NAD HEENT: PERRLA, moist MMs, sclera anicteric Neck: no JVD, supple, full ROM Respiratory: no wheezing, no rales, no rhonchi, clear to auscultation bilateral Cardiovascular: RRR, no significant murmur, no rub Gastrointestinal: soft, non-tender, no distention, positive bowel sounds Musculoskeletal: no edema, pulses present Neurological: non-focal, moves all 4 limbs Psychiatric: normal affect Deviation from normal: A&O x 2 Skin: no rash, normal turgor Dx/Plan (1) Dysphagia Code(s): R13.10 - DYSPHAGIA, UNSPECIFIED Status: Acute Qualifiers: Dysphagia type: unspecified Qualified Code(s): R13.10 - Dysphagia, unspecified Comment: Unclear etiology. MRI brainand barium swallow negative. PEG placed 05/12. Feeding resumed through PEG (2) Chronic pain Code(s): G89.29 - OTHER CHRONIC PAIN Status: Acute Qualifiers: Chronic pain type: other chronic pain Qualified Code(s): G89.29 - Other chronic pain Comment: Continue fentanyl and other pain meds. (3) Thrombocytopenia Code(s): D69.6 - THROMBOCYTOPENIA, UNSPECIFIED Status: Acute Comment: Monitor. Asymptomatic. Hold heparin, continue SCDs (4) Pneumonia Code(s): J18.9 - PNEUMONIA, UNSPECIFIED ORGANISM Status: Acute Qualifiers: Pneumonia type: due to unspecified organism Laterality: bilateral Comment: Continue clinda and Levofloxacin Cxs negative so far. (5) MARTHA (acute kidney injury) Code(s): N17.9 - ACUTE KIDNEY FAILURE, UNSPECIFIED Status: Acute Comment: Continue hydration. Started PEG feeding so renal indices should improve. (6) Diabetes type 2, controlled Code(s): E11.9 - TYPE 2 DIABETES MELLITUS WITHOUT COMPLICATIONS Status: Chronic Qualifiers: Diabetes mellitus complication status: without complication Diabetes mellitus halfway insulin use: without halfway use Qualified Code(s): E11.9 - Type 2 diabetes mellitus without complications Comment: Controlled and at goal. (7) Physical deconditioning Code(s): R53.81 - OTHER MALAISE Status: Chronic Comment: Continue PT/OT (8) Non-ST elevation myocardial infarction (NSTEMI), type 2 Code(s): I21.A1 - MYOCARDIAL INFARCTION TYPE 2 Status: Acute Comment: Stable. chest pain free. Continue amiodarone, ASA, coreg. Will hold lisinopril. - Plan cont current plan of care, plan discussed w/ family, continue antibiotics, PT/OT , DVT proph w/SCDs * .
--- NOTE | 2017-05-13 16:07 | PQF ---
CLINICAL DOCUMENTATION IMPROVEMENT CLARIFICATION FORM: ICD-10 Updated PLEASE DO AN ADDENDUM TO THE PROGRESS NOTE WITH ANY DOCUMENTATION UPDATES OR ADDITIONS AND CARRY THROUGH TO DC SUMMARY. THANK YOU. DATE: 05/13/17 ATTN: Dr. Sexton Please exercise your independent, professional judgment in responding to the clarification form. Clinical indicators are provided on the bottom of this form for your review Please check appropriate box(s): [ X ] Aspiration Pneumonia [ ] Empirically treating Anaerobic Pneumonia [ ] Pneumonia secondary to (specify organism / underlying disease) [ ] Simple Pneumonia (community acquired - nosocomial) [ ] Pneumonia of unknown etiology [ ] Other diagnosis [ ] Unable to determine In addition, please specify: Present on Admission (POA): [ X ] Yes [ ] No [ ] Unable to determine For continuity of documentation, please document condition throughout progress notes and discharge summary. Thank You. CLINICAL INDICATORS - SIGNS / SYMPTOMS / LABS H&P: CHEST X-RAY SUGGESTS THE POSSIBILITY OF A PNEUMONIA OR ASPIRATION PNEUMONIA. PN 05/10: HIS VANCOMYCIN IS STOPPED & CLINDAMYCIN IS STARTED FOR POSSIBLE INFECTIOUS/ ASPIRATION PNEUMONITIS PN 05/13: PNEUMONIA D/T UNSPECIFIED ORGANISM. BILATERAL. RISKS: H&P: AGE 86. DYSPHAGIA & WEAKNESS X2 WEEKS. 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 SPEECH ASSESSMENT 05/10: SWALLOWING: SEVERE FUNCTIONAL IMPAIRMENT TREATMENT: CPOE 05/10: CLINDAMYCIN 600 MG IV Q 8 HRS CPOE 05/10 LEVOFLOXACIN 750 MG IV Q 48 HR OP NOTE 05/12: EGD WITH ENDOSCOPIC G TUBE PLACEMENT. Thank you, Denise (This form is maintained as a part of the permanent medical record) 2014 [employer]. All Rights Reserved Denise Gil RN, BSN [email or web address] Office: [phone] [facility]
--- NOTE | 2017-05-13 18:37 | CON ---
DATE OF SERVICE: 05/13/2017 SUBJECTIVE: Mr. Olivera seems to be in better spirits today. OBJECTIVE: VITAL SIGNS: Blood pressure 106/52, pulse 81, temperature 97.4. LUNGS: Clear to auscultation. HEART: Regular rate and rhythm. ABDOMEN: Soft, nontender, nondistended. EXTREMITIES: No edema. PERTINENT LABS: Hemoglobin 10.4, creatinine 1.69. IMPRESSION: 1. Acute systolic heart failure. 2. Transient ischemic attack/cerebrovascular accident. 3. History of atrial fibrillation. RECOMMENDATIONS: I had a long discussion with Mr. Castillo today, as well as his family. Mr. Castillo has been adamant against the use of anticoagulation therapy in the past. After once again discussin g the risks and benefits, he has agreed to proceed with anticoagulation treatment. We will therefore recommend Eliquis 2.5 mg one p.o. b.i.d. His MRI dated 05/10/2017 showed no evidence of acute intra cranial abnormalities with small-vessel ischemic disease. We will also hold beta jomar therapy, AC E inhibitor therapy, and ARB due to hypotension and renal insufficiency. The patient will likely nee d placement. I also discussed DNR status with Mr. Castillo. He does not wish for intubation, cardioversion, or com pressions.
[2017-05-13] MEDS: Donepezil HCl 10 MG TAB PO SCH (21:24)
[2017-05-13] MEDS: traZODone HCl 50 MG TAB PO SCH (21:24)
[2017-05-13] MEDS: Finasteride 5 MG TAB PO SCH (21:24)
[2017-05-13] MEDS: Cyclobenzaprine 10 MG TAB PO SCH (21:24)
--- NOTE | 2017-05-13 22:15 | PRG ---
DATE OF SERVICE: 05/13/2017 HISTORY OF PRESENT ILLNESS: This is an 86-year-old male admitted to the hospital with poor oral intake and possible aspiration. He underwent EGD and PEG tube placement yesterday. The patien t actually NPO and started on tube feeding. The patient appears comfortable. He is still founds con gested and he is still spitting up some mucus off and on. The G-tube site appears very healthy. The . RECOMMENDATIONS: 1. We will give all the medicines through the PEG tube and irrigate the PEG tube periodically. 2. Continue tube feeding.
--- NOTE | 2017-05-13 22:46 | PRG ---
DATE OF SERVICE: 05/13/2017 SUBJECTIVE: Patient was seen and examined at bedside and overnight events noted. Patient denies any shortness of breath or chest pain or palpitation. No history of nausea or vomiting or diarrhea or f ever or chills or cramps. OBJECTIVE: GENERAL: Elderly male in no apparent distress. VITAL SIGNS: Temperature 97.4, pulse 81, respiratory 16, blood pressure 106/52. HEENT: Atraumatic, normocephalic. Oral mucosa is moist. NECK: Supple. CARDIOVASCULAR: S1, S2 heard. Rate and rhythm regular. RESPIRATORY: Clear to auscultation. GASTROINTESTINAL: Abdomen is soft. MUSCULOSKELETAL: No tenderness. No edema. DERMATOLOGIC: No skin rash. NEUROLOGIC: Alert and awake and oriented x3. No focal neurologic deficits. Moving all the extremit ies. PSYCHIATRIC: Mood and affect normal. LABORATORY DATA: Potassium is 4.4, BUN is 57, creatinine is 1.6. ASSESSMENT AND PLAN: 1. Acute kidney injury on chronic kidney disease stage III. Renal function shows slight bump, might need IV fluids. We will monitor for now, avoid nephrotoxins. 2. Hypertension, stable. 3. Hyperkalemia . Plan is to continue to monitor renal function and avoid nephrotoxins. We will follow.
[2017-05-14 05:02] LABS: #Eosinphils 0.1 thou/uL (0.0-0.7); #Lymphocytes 1.3 thou/uL (1.20-3.40); #Neutrophils 7.3 thou/uL (1.40-6.50); %Basophils 0.1 % (0.0-1.0); %Eosinophils 0.7 % (0.0-10.0); %Monocytes 10.7 % (0.0-10.0); %Neutrophils 75.4 % (42.0-75.0); Hemoglobin 10.2 g/dL (14.0-18.0); Mean Corpuscular HGB CONC 32.8 g/dL (32.0-36.0); Mean Platelet Volume 9.9 fL (7.4-10.4); Platelet Count 131 thou/uL (130-400); RBC Distribution Width 13.3 % (11.5-14.5); Red Blood Cell (RBC) Count 3.08 mill/uL (4.70-6.10); White Blood Cell (WBC) Count 9.6 thou/uL (4.8-10.8)
[2017-05-14 05:13] LABS: Anion Gap 10 mmol/L (10-20); BUN (Urea Nitrogen) 32 mg/dL (8.4-25.7); Calc. Creatinine Clearance 37 mL/min (70-130); Calcium 8.4 mg/dL (7.8-10.44); Carbon Dioxide 25 mmol/L (23-31); Chloride 101 mmol/L (98-107); Estimated GFR-MDRD 41; Glucose 153 mg/dL (83-110); Potassium 4.4 mmol/L (3.5-5.1); Sodium 132 mmol/L (136-145)
[2017-05-14] MEDS: Clindamycin/D5W 600 MG in Premix Bag 1 BAG IVPB SCH ×2 (05:33→15:32)
[2017-05-14] MEDS: Famotidine/PF 20 mg/2ml Vial SLOW IVP SCH (08:41)
[2017-05-14] MEDS: Acetaminophen/Codeine 30-300mg Tablet PO PRN (08:42)
[2017-05-14] MEDS: Docusate 100 MG CAP PO SCH (08:42)
[2017-05-14] MEDS: Amiodarone 200 MG TAB PO SCH (08:42)
[2017-05-14] MEDS: Aspirin 81 mg Enteric Coated Tablet PO SCH (09:33)
--- NOTE | 2017-05-14 10:48 | PRG ---
DATE OF SERVICE: 05/14/2017 NEPHROLOGY PROGRESS NOTE SUBJECTIVE: Patient was seen and examined at bedside and overnight events noted. Patient denies any shortness of breath or chest pain or palpitation. No history of nausea or vomiting or diarrhea or f ever or chills or cramps. OBJECTIVE: GENERAL: This is a well-built male in no apparent distress. VITAL SIGNS: Temperature 98.1, pulse 85, respiratory rate 18, blood pressure 103/53. HEENT: Atraumatic, normocephalic. Oral mucosa is moist. NECK: Supple. CARDIOVASCULAR: S1, S2 heard. Rate and rhythm regular. RESPIRATORY: Clear to auscultation. GASTROINTESTINAL: Abdomen is soft. MUSCULOSKELETAL: No tenderness. No edema. DERMATOLOGIC: No skin rash. NEUROLOGIC: Alert and awake and oriented x3. No focal neurologic deficits. Moving all the extremiti es. PSYCHIATRIC: Mood and affect normal. LABORATORY DATA: Potassium is 4.4, BUN is 32, creatinine 1.6. ASSESSMENT AND PLAN: 1. Acute kidney injury on chronic kidney disease. Renal function seems to be stable. Continue gent le hydration and oral hydration as tolerated. 2. Hypertension, stable. 3. Hyperkalemia, better. 4. Edema. 5. Cardiorenal syndrome. 6. Anemia, mild. 7. Renal function seems to be stable. Avoid nephrotoxins. Medication list reviewed. Continue to r enally dose all medicines and continue antibiotics. We will stop potassium supplements. We will fol low.
[2017-05-14 12:04] VITALS: BP 114/60; TEMP 97.5
--- NOTE | 2017-05-14 20:11 | PRG ---
DATE OF SERVICE: 05/14/2017 SUBJECTIVE: No significant changes overnight. Mr. Olivera will be transferred to rehab today. OBJECTIVE: VITAL SIGNS: Blood pressure 114/64, , temperature 97.5. LUNGS: Clear to auscultation. CARDIAC: Regular rate and rhythm. ABDOMEN: Soft, nontender, nondistended. EXTREMITIES: No edema. IMPRESSION: 1. Recent cerebrovascular accident. 2. Atrial fibrillation. 3. Cardiomyopathy. RECOMMENDATIONS: 1. Coreg has been added. 2. We will also add Eliquis. I have discussed risks and benefits of anticoagulation therapy. 3. Okay from my standpoint to transfer to rehab.
[2017-05-14] MEDS ORDERED: Carvedilol 3.125 MG TAB PO SCH (21:00)
[2017-05-14] MEDS ORDERED: guaiFENesin ER 600 MG TAB PO SCH (21:00)
[2017-05-14] MEDS ORDERED: Apixaban 5 MG TAB PO SCH (21:00)
--- NOTE | 2017-05-15 07:04 | DIS ---
DATE OF ADMISSION: 05/09/2017 DATE OF DISCHARGE: 05/14/2017 DISCHARGE DIAGNOSES: Dysphagia secondary to cerebrovascular accident status post PEG tube placement, chronic pain, thrombo cytopenia, pneumonia, acute kidney injury, type 2 diabetes mellitus, physical deconditioning, NSTEMI type 2. HISTORY OF PRESENT ILLNESS: This is an 86-year-old male with history of PVD, BPH, squamous cell carc inoma of the tongue, status post small CVAs in the past, who presents to the emergency room by [facility] with complaint of progressive dysphagia over the past 2 weeks. He had been workin g with physical therapy for deconditioning at facility about 2 weeks ago and noted to have progressiv e incidents of dysphagia slightly decreased oral intake to the point that early on the day of admissi on when he was to take meals he was simply unable to do so. There was no odynophagia. During this t cristian, he also experienced increased overall fatigue and speech slurring. He has had similar episodes in the past, which resolved. He was admitted for dysphagia and also for possible aspiration pneumoni a as he had a CT done, which showed bibasilar consolidation with pleural fluid, which prior findings indicate pneumonia with parapneumonic effusion correlated clinically. HOSPITAL COURSE: The patient was made n.p.o. due to for his aspiration pneumonia. He was started on IV levofloxacin and clindamycin. Speech therapy was consulted. He also had an Esophagogastroduoden oscopy with endoscopic gastrostomy tube placement. He was started on tube feeds and tolerated for hi s acute kidney injury. He was hydrated and renal function improved before discharge. 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 After conversing with Cardiology, he was started on Eliquis. He had an EKG done, which showed nor mal sinus rhythm with nonspecific intraventricular conduction delay. He also had T-wave abnormality and he had an echocardiogram, which shows severe disease in the left ventricles with estimated EF of 20-25% with moderately dilated left ventricle. There was actually difficulty in put him on appropria te medications as he had borderline low blood pressures on arrival. Initial recommendation was to nicole Moore. He was started on carvedilol and discharged on low dose 3.125 mg b.i.d. He was also followed by Nephrology for his acute kidney injury. His metformin was held and also lisinopril. He is to resume these medications after he sees his PCP within 1 week, where recommendation will be made to start depending on his repeat labs, also not started on spironolactone due to his low blood pressures. PHYSICAL EXAMINATION: VITAL SIGNS: On discharge, his temperature was 98.1 degree Fahrenheit, pulse 85, respirations 18, ox ygen saturations 97% on room air, blood pressure 193/53. GENERAL: In mild distress from his back pain, but otherwise not in any other distress. HEENT: PERRLA. Moist mucous membranes. Sclerae are anicteric. NECK: No JVD, supple. Full range of movement. RESPIRATORY: No wheezing, rales or rhonchi. LUNGS: Clear to auscultation bilaterally. CARDIOVASCULAR: Regular rate and rhythm. No murmurs or rubs. GASTROINTESTINAL: Soft, nontender, no distention. Positive bowel sounds. MUSCULOSKELETAL: No edema. Pulses present. NEUROLOGIC: Nonfocal. Moves all limbs. PSYCHIATRIC: Normal affect, alert and oriented x2 to person and place. SKIN: No rash. Normal turgor. Also, due to the patient's dysphagia, he was instructed any p.o. feeds will be at the patient's own r isk due to his high risk for aspiration. Family decided to give him some ice cubes and some p.o. kierra ls for comfort. They were advised on the dangers and they said they were aware MEDICATIONS: Apixaban 2.5 mg b.i.d., carvedilol 3.125 mg b.i.d., Mucinex 600 mg q.12 hours, aspirin 81 mg daily, t erazosin 10 mg at bedtime, omeprazole 20 mg daily, donepezil 10 mg at bedtime, vitamin D3/folic acid 1 tablet daily, acetaminophen with codeine 1 tablet every 6 hours as needed, finasteride 5 mg at bedt cristian, trospium 20 mg twice daily, mirabegron 50 mg daily, melatonin 2.5 mg at bedtime as needed, regul ar strength Tylenol 650 mg every 4 hours as needed, albuterol sulfate 1.25 mg q.8 hours as needed for wheezing, amiodarone 400 mg daily, calcium carbonate 2000 mg every 4 hours as needed, fentanyl 1 pat ch transdermal every 3 days, ondansetron 4 mg daily as needed, trazodone 50 mg at bedtime, cyclobenza tomasz 10 mg at bedtime, furosemide 20 mg oral as needed, docusate 100 mg oral daily, potassium chlori de 10 mEq daily, ferrous gluconate 324 mg oral daily. Notes, he also has acute systolic heart failur e imaging. Renal ultrasound, no hydronephrosis, 3 void bladder volume was 597. Brain MRI, no eviden ce of acute intracranial abnormality, small vessel ischemic disease, right full mastoid. Brain CT, no acute intracranial hemorrhage or mass effect, moderate chronic microvascular ischemic disease, sca ttered bilateral cerebellar hemispheric lacunar infarction, age indeterminate on the basis of this ex am. Modified barium swallow showed early spill of contrast with all consistencies, worse with thinne r consistencies good, bullous formation and retropulsion were apparent, slight delay in initiation of swallowing with thinner consistencies. Deep penetration was demonstrated with nectar thick liquid. No [place] aspiration was visible. Moderate degree of fullness/redness, patient clearing with additio nal swallows. Esophagus below the hypopharynx is not evaluated. CONSULTATIONS: Cardiology, Nephrology, GI. PROCEDURES: PEG tube placement. DIET: Tube feeds. CONDITION AT DISCHARGE: Stable and improved. ACTIVITY: To resume as tolerated and as directed by physical and occupational therapy, care goals. He is to follow up with his primary care physician within 1 week of discharge for repeat labs then decision will be made to restart his metformin and lisinopril. Discharge time 65 minutes including chart review and documentation. In addition, the patient told to return to the emergency room if he develops shortness of breath, chest pain, loss of consciousness, lightheadedness.
--- NOTE | 2017-05-16 17:05 | EKG ---
Test Reason : COUGH Blood Pressure : / mmHG Vent. Rate : 086 BPM Atrial Rate : 086 BPM P-R Int : 230 ms QRS Dur : 130 ms QT Int : 390 ms P-R-T Axes : 030 015 159 degrees QTc Int : 466 ms Sinus rhythm with 1st degree A-V block Non-specific intra-ventricular conduction block T wave abnormality, consider inferolateral ischemia Abnormal ECG Confirmed by ABRAHAM FERREIRA D.O. ([id number]), purchasing expeditor ARELY WEBBER ([id number]) on 05/16/2017 5:04:21 PM Referred By: Confirmed By:ABRAHAM FERREIRA D.O.
== END 2017-05-14 15:55 | DRG 177 ==
LOC: ERS 14:51 → 2SE 18:15
PROVIDERS: ADMIT Internal Medicine; ATTEND Internal Medicine
PROC: 0DH63UZ Insertion of Feeding Device into Stomach, Percutaneous Approach (ICD-10-PCS; principal; 2017-05-12)
DX: J69.0 Pneumonitis due to inhalation of food and vomit (principal); I63.9 Cerebral infarction, unspecified; N17.9 Acute kidney failure, unspecified; I50.21 Acute systolic (congestive) heart failure; E87.5 Hyperkalemia; D69.6 Thrombocytopenia, unspecified; E11.22 Type 2 diabetes mellitus with diabetic chronic kidney disease; E87.1 Hypo-osmolality and hyponatremia; N18.3 Chronic kidney disease, stage 3 (moderate); I13.0 Hypertensive heart and chronic kidney disease with heart failure and stage 1 through stage 4 chronic kidney disease, or unspecified chronic kidney disease; R13.10 Dysphagia, unspecified; E86.0 Dehydration; G89.29 Other chronic pain; N40.0 Benign prostatic hyperplasia without lower urinary tract symptoms; I73.9 Peripheral vascular disease, unspecified; Z88.0 Allergy status to penicillin; Z85.810 Personal history of malignant neoplasm of tongue; Z85.72 Personal history of non-Hodgkin lymphomas; Z92.3 Personal history of irradiation; Z92.21 Personal history of antineoplastic chemotherapy; Z79.82 Long term (current) use of aspirin; Z79.899 Other long term (current) drug therapy
CPT/HCPCS: 36415; 36416; 51701; 70450; 70551; 71045; 74176; 74230; 76770; 80048; 80053; 80061; 81003; 82553; 83036; 83605; 83880; 84484; 85025; 85610; 85730; 87040; 87086; 87804; 93005; 93306; 93798; 94640; 99406; A4216; G8978-GP-CL; G8979-GP-CJ; G8987-GO-CL; G8988-GO-CJ; G8996-GN-CL; G8996-GN-CN; G8997-GN-CK; G8997-GN-CN; J1644; J1956; J3370; J3490; J7050; J7611; S0028